=== PATIENT | male | born 1960 | race Caucasian/White ===

== ENCOUNTER 2019-05-20 12:23 | Emergency (ER) | payer BC, SELFPAY ==
[2019-05-20 12:42] VITALS: BP 128/74; PULSE 62; RESP 16; TEMP 36.3; O2SAT 97
--- NOTE | 2019-05-20 12:52 | ED.GENADULT ---
HPI - General Adult General Chief complaint: Upper Respiratory Infection Stated complaint: cough chest ras head clogged up Time Seen by Provider: 05/20/19 12:52 Source: patient and RN notes reviewed Mode of arrival: ambulatory Limitations: no limitations History of Present Illness HPI narrative: 58-year-old male presents with spouse (talk freely)Tito complains of upper respiratory infection symptoms, intermittent chills, facial congestion and pressure, dry cough, body aches, intermittent headache (not the worst of his life) for 3 days. Ibuprofen (last this a.m.), NyQuil, and DayQuil without relief. Constant dry cough and productive cough (yellow-green phlegm). Rhinorrhea (yellow drainage) and nasal congestion. Denies sore throat. No high fevers, drooling, neck or throat swelling. No chest pain, wheezing, or shortness of breath. No exacerbation factors. Denies nausea, vomiting, and abdominal pain. Tolerating liquids well. Remains active. Some parts of this dictation were generated by voice recognition software and may contain typographical and/or grammatical inaccuracies. Related Data Allergies Allergy/AdvReac Type Severity Reaction Status Date / Time morphine Allergy Unknown HIVES/RASH Verified 05/20/19 12:46 Review of Systems Review of Systems: Narrative: CONSTITUTIONAL: Complains of intermittent chills, sweats. Denies fever. EYES: Denies visual changes, redness, discharge. ENT: Complains rhinorrhea, congestion, facial congestion and pressure. Denies sore throat, otalgia. CARDIOVASCULAR: Denies chest pain, palpitations, edema. RESPIRATORY: Denies dyspnea, wheezing. Complains of dry cough, productive cough. GASTROINTESTINAL: Denies abdominal pain, nausea, vomiting, diarrhea. GENITOURINARY: Denies dysuria, hematuria, abnormal discharge. SKIN: Denies rash or itching. MUSCULOSKELETAL: Denies acute back pain, joint pain. complains of myalgia. NEUROLOGIC: Denies numbness or focal weakness. Complains intermittent headache. PSYCHIATRIC: Denies anxiety or depression. All systems reviewed & are unremarkable except as noted in HPI and below PMFSH Past Medical History Medical History (Updated 05/21/19 @ 00:01 by Rhonda Mathews) Lymphadenopathy, axillary Removed Prostate cancer Surgical History Surgical History (Updated 05/20/19 @ 13:18 by MATTHEW Thurman) No significant past surgical history Social History Social History Smoking status: Never smoker Alcohol intake: current Gender identity (if verbalized by the patient): Male Comments At time of signature, agree with nurse past medical, surgical, social, and family history. There is no relevant family history pertinent to the presenting complaint. Exam Narrative: Exam Narrative: GENERAL: This is a well-nourished, well-developed patient, in no apparent distress. Talks in full sentences and ambulates with steady gait without dyspnea. HEAD: normocephalic, atraumatic. EYES: PERRL. Sclera clear/white. Vision is grossly intact. EARS: Pinna is normal shape and contour. Clear external auditory canals. LT TM with mild fluid and pearly aguirre with good cone of light, no erythema or suppuration. RT TM mild erythema and bulging, moderate fluid noted, no drainage or suppuration. No tenderness with manipulation. No gross hearing deficit. NOSE: External nose normal with no obvious nasal discharge, nares with moderate redness and enlarged turbinates, clear rhinorrhea. SINUSES: Mild tenderness upon palpation to maxillary sinus. THROAT: Mucous membranes moist, posterior pharynx clear. PND, mild erythema, no exudate, and tonsils normal. NECK: Neck supple, non-tender without lymphadenopathy, masses or thyromegaly. CARDIOVASCULAR: Regular rate and rhythm without murmurs, gallops, or rubs. RESPIRATORY: Clear to auscultation. Breath sounds equal bilaterally. No wheezes, rales, or rhonchi. Dry cough. GASTROI
== END 2019-05-20 13:10 | disposition home or self-care (01) ==
PROVIDERS: Emergency Provider Nurse Practitioner Family
DX: J40 Bronchitis, not specified as acute or chronic (principal); H65.01 Acute serous otitis media, right ear
CPT/HCPCS: 99213; G0463

== ENCOUNTER 2020-01-16 16:19 | Emergency (ER) | payer BC, SELFPAY ==
[2020-01-16 16:28] VITALS: BP 154/76; PULSE 63; RESP 18; TEMP 36.4; O2SAT 97
--- NOTE | 2020-01-16 16:30 | ED.URI ---
HPI - URI/Sore Throat General Chief Complaint: Upper Respiratory Infection Stated Complaint: Ear Pain,sore throat Time Seen by Provider: 01/16/20 16:30 Source: patient Mode of arrival: ambulatory Limitations: no limitations History of Present Illness HPI Narrative: Tito Salazar is 59 yo male with a PMH of HTN who comes to express care with complaints of sinus pain, congestion, action of green mucus, cough, that started yesterday. He has a history of having sinus infections every fall and/or spring. He has seasonal allergies which she does not take any antihistamine on a regular basis. He also has hypertension that he also does not take regular medication for. He is here for treatment of his sinus issues because he wants to return to work in the morning Related Data Allergies Allergy/AdvReac Type Severity Reaction Status Date / Time morphine Allergy Unknown HIVES/RASH Verified 01/16/20 16:22 Review of Systems Review of Systems: Narrative: CONSTITUTIONAL: Denies fever, chills, sweats. EYES: Denies visual changes, redness, discharge. ENT: Has rhinorrhea, has congestion, sore throat, otalgia. He has maxillary and ethmoid sinus pain CARDIOVASCULAR: Denies chest pain, palpitations, edema. RESPIRATORY: Denies dyspnea, wheezing, cough GASTROINTESTINAL: Denies abdominal pain, nausea, vomiting, diarrhea. GENITOURINARY: Denies dysuria, hematuria, abnormal discharge SKIN: Denies rash or itching. NEUROLOGIC: Denies numbness, or focal weakness. PSYCHIATRIC: Denies anxiety or depression. [facility] Past Medical History Medical History HTN (hypertension) Lymphadenopathy, axillary Removed Prostate cancer Surgical History Surgical History No significant past surgical history Family History Family History Mother Hypertension Father Hypertension Social History Social History Smoking status: Never smoker Alcohol intake: current Gender identity (if verbalized by the patient): Female Comments At time of signature, I agree with nursing past medical, surgical, social and family history. There is no relevant family history pertinent to the presenting complaint. Exam Narrative: Exam Narrative: GENERAL: This is a well-nourished, well-developed patient, in mild distress. HEAD: normocephalic, atraumatic.Tender frontal ethmoid sinuses EYES: Sclera clear/white. Vision is grossly intact. EARS: External ears normal, auditory canals clear, some erythema, and without drainage, TMs normal without perforation. Hearing grossly intact. Complains of muffling NOSE: External nose normal ,has nasal discharge, nares with redness, has rhinorrhea. THROAT: Mucous membranes moist, posterior pharynx erythema no exudate NECK: Neck supple, non-tender CARDIOVASCULAR: Regular rate and rhythm without murmurs, gallops, or rubs. RESPIRATORY: Clear to auscultation. Breath sounds equal bilaterally. No wheezes, rales, or rhonchi. GASTROINTESTINAL: Abdomen soft, non-tender, SKIN: warm, intact with no suspicious lesions or rash, good texture and turgor. NEURO: awake, alert, and oriented to person, place and time. There were no obvious focal neurologic abnormalities. Steady gait EXTREMITIES: Normal range of motion. BACK: Nontender without deformity Course Course Emergency Course: Patient comes here for symptoms of sinus infection that is recurrent and well-documented. He does not take Zyrtec or Claritin in the a.m. although has seasonal allergies. Symptoms are consistent with his prior experiences with recurrent sinusitis Patient started on Zithromax and prednisone (he is allergic to penicillin so Augmentin is not an option), recommended to start taking Zyrtec or Claritin in the morning during the fall and spring at least when his allergies seem
== END 2020-01-16 16:57 | disposition home or self-care (01) ==
PROVIDERS: Emergency Provider Nurse Practitioner
DX: J01.21 Acute recurrent ethmoidal sinusitis (principal); I10 Essential (primary) hypertension; Z85.46 Personal history of malignant neoplasm of prostate
CPT/HCPCS: 99213; G0463

== ENCOUNTER 2020-03-25 14:49 | Emergency (ER) | payer BC, SELFPAY ==
--- NOTE | ~2020-03-25 | XR_ITS ---
EXAMINATION: XR chest 2V DATE: 03/25/2020 15:28 INDICATION: Cough and shortness of breath TECHNIQUE: PA and lateral views of the chest are obtained. COMPARISON: 03/11/2017 FINDINGS: The lungs are free of acute opacities. There is no pleural effusion or pneumothorax. The ca rdiomediastinal silhouette is normal. There is mild thoracic spondylosis. IMPRESSION: 1. No acute cardiopulmonary abnormality. Reviewed, dictated and finalized at location A. FARMER
[2020-03-25 14:58] VITALS: BP 134/80; PULSE 70; RESP 18; TEMP 36.2; O2SAT 97
[2020-03-25 15:03] VITALS: BP 134/80; PULSE 70; RESP 18; TEMP 36.2; O2SAT 97
--- NOTE | 2020-03-25 15:21 | ED.URI ---
HPI - URI/Sore Throat General Chief Complaint: Upper Respiratory Infection Stated Complaint: Cough Time Seen by Provider: 03/25/20 15:07 Source: patient and RN notes reviewed Mode of arrival: ambulatory Limitations: no limitations History of Present Illness HPI Narrative: Patient presents today complaining of a 3-day history of nasal congestion, body aches, chills and sweats, ear clogging, frontal headache, productive cough, mild shortness of breath, fatigue, and chest tightness. Denies nausea, vomiting, sore throat. Patient was diagnosed with COVID-19 around [facility]. States his symptoms are rather mild and those symptoms completely resolved prior to getting sick again. He has been taking Zyrtec-D without relief. He is a non-smoker. MD elicited complaint: cough and nasal congestion Related Data Allergies Allergy/AdvReac Type Severity Reaction Status Date / Time morphine Allergy Unknown HIVES/RASH Verified 03/25/20 14:54 Review of Systems Review of Systems: Narrative: CONSTITUTIONAL: + Body aches, sweats, chills, fatigue EYES: Denies visual changes, redness, or discharge. ENT: Denies rhinorrhea, sore throat, or otalgia. + Nasal congestion, clogged ears CARDIOVASCULAR: Denies chest pain, palpitations, or edema. RESPIRATORY: + Productive cough, mild shortness of breath, chest tightness GASTROINTESTINAL: Denies abdominal pain, nausea, vomiting, or diarrhea. GENITOURINARY: Denies dysuria or hematuria. SKIN: Denies rash, itching, or wounds. MUSCULOSKELETAL: Denies back pain, joint pain, or myalgia. NEUROLOGIC: Denies numbness, tingling, or weakness.+ Headache PSYCH: Denies depression or anxiety. [facility] Past Medical History Medical History (Updated 03/25/20 @ 15:47 by Joyce Andrade, [facility], ) HTN (hypertension) Lymphadenopathy, axillary Removed Prostate cancer Surgical History Surgical History No significant past surgical history Family History Family History Mother Hypertension Father Hypertension Social History Social History Smoking status: Never smoker Alcohol intake: current Gender identity (if verbalized by the patient): Female Comments At time of signature, I have reviewed and agree with nursing past medical, surgical, social and family history unless otherwise noted. Please see nursing chart for further information. There is no relevant family history pertinent to the presenting complaint Exam Narrative: Exam Narrative: GENERAL: Mildly ill-appearing, well-nourished, and in no acute distress. HEAD: Normocephalic, atraumatic. EYES: EOMI. No redness or drainage. Conjunctivae normal. ENT: Mucous membranes pink and moist. Nares clear. No rhinorrhea. TMs normal bilaterally. Throat normal with copious green purulent postnasal drainage. Uvula midline. NECK: Normal AROM. Supple. Right posterior cervical chain lymphadenopathy. CHEST: No respiratory distress. Clear to auscultation except crackles in the left lower lobe. HEART: Regular rate and rhythm. No murmur appreciated. Normal peripheral pulses. MUSCULOSKELETAL: No bony tenderness. EXTREMITIES: Normal range of motion. No edema. SKIN: Warm, dry, no rash. Capillary refill normal. Normal skin turgor. NEURO: No focal deficits. Alert and oriented x3. Gait steady. PSYCH: Normal affect. No signs of depression or anxiety. Course Course Emergency Course: Due to patient's history of likely fever, recent COVID infection, purulent post nasal drainage, I feel it indicated to prescribe him antibiotics for presumed bacterial sinusitis at this time. Vital Signs Vital signs: Vital Signs Temperature 97.1 F L 03/25/20 14:58 Pulse Rate 70 03/25/20 14:58 Respiratory Rate 18 03/25/20 14:58 Blood Pressure 134/80 03/25/20 14:58 Pulse Oximetry 97 03/25/20 14:58 Temperatur
== END 2020-03-25 15:54 | disposition home or self-care (01) ==
PROVIDERS: Emergency Provider Nurse Practitioner
DX: J40 Bronchitis, not specified as acute or chronic (principal); J01.10 Acute frontal sinusitis, unspecified; I10 Essential (primary) hypertension; Z85.46 Personal history of malignant neoplasm of prostate
CPT/HCPCS: 71046; 99213; G0463

== ENCOUNTER 2020-06-27 15:39 | Outpatient (CLI) | payer BC, SELFPAY ==
--- NOTE | ~2020-06-27 | XR_ITS ---
XR shoulder RT min 2V DATE: 06/27/2020 16:01 INDICATION: Right shoulder pain following lifting injury one week ago. Unable to lift. TECHNIQUE: 4 views COMPARISON: None FINDINGS: No fracture or dislocation, periosteal reaction or bone destruction or abnormal soft tissue calcification is evident. There is narrowing of the right acromioclavicular joint. IMPRESSION: Mild degenerative change Reviewed, dictated and finalized at location A. IMPRESSION: Mild degenerative change
== END 2020-06-27 15:40 | disposition home or self-care (01) ==
LOC: ANHIMG 15:44
PROVIDERS: PCP Family Medicine; Visit Provider Family Medicine
DX: M19.011 Primary osteoarthritis, right shoulder (principal)
CPT/HCPCS: 73030

== ENCOUNTER 2020-07-13 19:47 | Emergency (ER) | payer BC, SELFPAY ==
--- NOTE | 2020-07-13 20:00 | ED.URI ---
HPI - URI/Sore Throat General Chief Complaint: Upper Respiratory Infection Stated Complaint: chills/fever/cough Time Seen by Provider: 07/13/20 20:05 Source: patient and RN notes reviewed Mode of arrival: ambulatory Limitations: no limitations History of Present Illness HPI Narrative: 59-year-old male presents with concern for sore throat, nasal drainage, body aches, chills, occasional cough, nasal congestion. He denies fever, ear pain, loss of sense of taste or smell. Reports he had Covid in February. Reports he has been taking several [id number] medications that provide no relief. He denies any known sick contacts. He denies nausea, vomiting, diarrhea. MD elicited complaint: sore throat Related Data Allergies Allergy/AdvReac Type Severity Reaction Status Date / Time morphine Allergy Unknown HIVES/RASH Verified 03/25/20 14:54 Review of Systems Review of Systems: Narrative: CONSTITUTIONAL: Reports malaise, chills. Denies sweats, or fever. EYES: Denies visual changes, redness, or discharge. ENT: Reports rhinorrhea, congestion, sore throat. Denies sinus pain, otalgia CARDIOVASCULAR: Denies chest pain, palpitations, or edema. RESPIRATORY: Reports cough. Denies dyspnea. GASTROINTESTINAL: Denies abdominal pain, nausea, vomiting, diarrhea SKIN: Denies rash or itching. MUSCULOSKELETAL: Reports myalgia. NEUROLOGIC: Reports headache. All systems reviewed & are unremarkable except as noted in HPI and below PMFSH Past Medical History Medical History (Updated 07/13/20 @ 20:14 by Cynthia Sommers NP) HTN (hypertension) Lymphadenopathy, axillary Removed Prostate cancer Surgical History Surgical History No significant past surgical history Family History Family History Mother Hypertension Father Hypertension Social History Social History Smoking status: Never smoker Alcohol intake: current Gender identity (if verbalized by the patient): Female Comments At time of signature, agree with nursing past medical, surgical, social and family history. There is no relevant family history pertinent to the presenting complaint Exam Narrative: Exam Narrative: GENERAL: Well-appearing, well-nourished, and in no acute distress. HEAD: Normocephalic EYES: PERRLA, conjunctivae clear ENT: Nares clear, turbinates erythematous, clear discharge. Mucous membranes moist. TM pearly barron with dull light reflex bilaterally; no tragal tenderness. Oropharynx erythematous without lesions. Tonsils not enlarged and without exudate, no drooling, no hoarseness, no trismus, uvula midline. NECK: Supple. No lymphadenopathy CHEST: Clear to auscultation, breath sounds equal. No wheezing, rhonchi, rales, or stridor. No respiratory distress, speaks in full sentences. HEART: Regular rate and rhythm. No murmur heard. SKIN: Warm, dry, no rash. NEURO: Alert and oriented x3. PSYCH: Normal mood and affect Course Course Emergency Course: Patient is aware of diagnosis, understands and agrees to treatment plan. Anticipatory guidance given. Patient agrees to follow-up as directed and is aware of reasons to seek care at the emergency department. Portions of this record may have been created with voice recognition software Vital Signs Vital signs: Vital Signs Temperature 97.6 F 07/13/20 20:06 Pulse Rate 57 L 07/13/20 20:06 Respiratory Rate 16 07/13/20 20:06 Blood Pressure 160/86 H 07/13/20 20:06 Pulse Oximetry 97 07/13/20 20:06 Temperature 97.6 F 07/13/20 20:06 Pulse Rate 57 L 07/13/20 20:06 Respiratory Rate 16 07/13/20 20:06 Blood Pressure 160/86 H 07/13/20 20:06 Pulse Oximetry 97 07/13/20 20:06 Reviewed. MDM - URI/Sore Throat MDM Narrative Medical decision making narrative: Differential diagnosis considered: Allen virus, strep pharyngitis, allergic
[2020-07-13 20:06] VITALS: BP 160/86; PULSE 57; RESP 16; TEMP 36.4; O2SAT 97
--- NOTE | 2020-07-13 20:10 | PC.NURSE ---
Andry glasgow [facility] called for Vast PCR pickup tomorrow.
[2020-07-15 02:54] LABS: SARS-CoV-2 RNA PCR Negative
== END 2020-07-13 20:19 | disposition home or self-care (01) ==
PROVIDERS: Emergency Provider Nurse Practitioner
DX: J06.9 Acute upper respiratory infection, unspecified (principal); Z20.822 Contact with and (suspected) exposure to COVID-19; I10 Essential (primary) hypertension; Z85.46 Personal history of malignant neoplasm of prostate
CPT/HCPCS: 87081; 87880; 99213; C9803; G0463; U0003; U0005

== ENCOUNTER 2021-06-14 08:26 | Outpatient (CLI) | payer BC, SELFPAY ==
--- NOTE | 2021-06-14 11:00 | NEURO_ITS ---
Impression: # Complains of numbness of hands and neck pain. # Bilateral Carpal Tunnel Syndrome. # Bilateral ulnar neuropathy across the elbows. # Normal needle/EMG exam. # Clinical correlation recommended. Nerve Conduction Studies Anti Sensory Summary Table Stim Site NR Peak (ms) P-T Amp (?V) Site1 Site2 Delta-P (ms) Dist (cm) Harmeet (m/s) Left Median Anti Sensory (2-3nd Digit) Wrist 3.8 16.4 Wrist 2-3nd Digit 3.8 14.0 37 Wrist 3.6 5.8 Wrist 2-3nd Digit 3.8 14.0 37 Right Median Anti Sensory (2-3nd Digit) Wrist 4.0 8.4 Wrist 2-3nd Digit 4.0 14.0 35 Wrist 4.2 4.1 Wrist 2-3nd Digit 4.0 14.0 35 Left Radial Anti Sensory (Base 1st Digit) Wrist 2.2 26.0 Wrist Base 1st Digit 2.2 0.0 Right Radial Anti Sensory (Base 1st Digit) Wrist 2.4 15.4 Wrist Base 1st Digit 2.4 0.0 Left Ulnar Anti Sensory (5th Digit) Wrist 2.9 45.9 Wrist 5th Digit 2.9 14.0 48 Right Ulnar Anti Sensory (5th Digit) Wrist 3.1 24.9 Wrist 5th Digit 3.1 14.0 45 Motor Summary Table Stim Site NR Onset (ms) O-P Amp (mV) Site1 Site2 Delta-0 (ms) Dist (cm) Harmeet (m/s) Left Median Motor (Abd Poll Brev) Wrist 4.5 4.1 Elbow Wrist 6.5 30.0 46 Elbow 11.0 3.3 Right Median Motor (Abd Poll Brev) Wrist 3.5 5.9 Elbow Wrist 5.8 30.0 52 Elbow 9.3 5.5 Left Ulnar Motor (Abd Dig Minimi) Wrist 3.0 5.3 A Elbow Wrist 7.8 31.0 40 A Elbow 10.8 4.7 B Elbow Wrist 5.4 24.0 44 B Elbow 8.4 3.8 Right Ulnar Motor (Abd Dig Minimi) Wrist 2.6 5.7 A Elbow Wrist 7.1 31.0 44 A Elbow 9.7 6.4 B Elbow Wrist 4.8 22.0 46 B Elbow 7.4 3.5 F Wave Studies NR F-Lat (ms) L-R F-Lat (ms) Left Median (Mrkrs) (Abd Poll Brev) 26.99 0.51 Right Median (Mrkrs) (Abd Poll Brev) 26.49 0.51 Left Ulnar (Mrkrs) (Abd Dig Min) 26.55 0.47 Right Ulnar (Mrkrs) (Abd Dig Min) 26.08 0.47 EMG Side Muscle Nerve Root Ins Act Fibs Amp Dur Recrt Comment Right 1stDorInt Ulnar C8-T1 Nml Nml Nml Nml Nml Right Ext Indicis Radial (Post Int) C7-8 Nml Nml Nml Nml Nml Right Ext Digitorum Radial (Post Int) C7-8 Nml Nml Nml Nml Nml Right BrachioRad Radial C5-6 Nml Nml Nml Nml Nml Right PronatorTeres Median C6-7 Nml Nml Nml Nml Nml Right Abd Poll Brev Median C8-T1 Nml Nml Nml Nml Nml Left 1stDorInt Ulnar C8-T1 Nml Nml Nml Nml Nml Left Ext Indicis Radial (Post Int) C7-8 Nml Nml Nml Nml Nml Left Ext Digitorum Radial (Post Int) C7-8 Nml Nml Nml Nml Nml Left BrachioRad Radial C5-6 Nml Nml Nml Nml Nml Left PronatorTeres Median C6-7 Nml Nml Nml Nml Nml Left Abd Poll Brev Median C8-T1 Nml Nml Nml Nml Nml Right ABD Dig Min Ulnar C8-T1 Nml Nml Nml Nml Nml Right Abd Poll Long Radial (Post Int) C7-8 Nml Nml Nml Nml Nml Left ABD Dig Min Ulnar C8-T1 Nml Nml Nml Nml Nml Left Abd Poll Long Radial (Post Int) C7-8 Nml Nml Nml Nml Nml MTDD
== END 2021-06-14 08:27 | disposition home or self-care (01) ==
LOC: ANHNEURO 08:27
PROVIDERS: PCP Physician Assistant; Visit Provider Physician Assistant
DX: G56.03 Carpal tunnel syndrome, bilateral upper limbs (principal); G56.23 Lesion of ulnar nerve, bilateral upper limbs
CPT/HCPCS: 95886; 95911

== ENCOUNTER 2021-08-07 10:53 | Outpatient (CLI) | payer BC, SELFPAY ==
--- NOTE | ~2021-08-07 | XR_ITS ---
XR lumbar spine 2-3V DATE: 08/07/2021 11:19 INDICATION: Chronic low back pain TECHNIQUE: AP, lateral views COMPARISON: None FINDINGS: There is mild dextroscoliosis of the lower thoracic and lumbar spine. Normal alignment of the lumbar vertebrae. No fracture or bone destruction. The lumbar pedicles are in tact. There is mild degenerative disc disease at L3-4. The remaining lumbar and lumbosacral interspaces trevor ear well preserved. The sacroiliac joints are intact. IMPRESSION: Mild dextro scoliosis Mild degenerative disc disease Reviewed, dictated and finalized at location A.
--- NOTE | ~2021-08-07 | XR_ITS ---
XR chest 2V DATE: 08/07/2021 11:19 INDICATION: Decreased breath sounds TECHNIQUE: PA and lateral views COMPARISON: 03/25/2020 2 view chest FINDINGS: Normal heart size. Mild aortic unfolding. No hilar or mediastinal enlargement. No pulmonary infiltrate or consolidation, pleural effusion or pulmonary vascular congestion or pneumo thorax. Included skeletal structures are unremarkable. IMPRESSION: No active cardiopulmonary disease Reviewed, dictated and finalized at location A.
--- NOTE | ~2021-08-07 | XR_ITS ---
XR knee RT 3V DATE: 08/07/2021 11:19 INDICATION: Right knee pain TECHNIQUE: AP, lateral and sunrise views COMPARISON: None FINDINGS: There is mild periarticular spurring at the patellofemoral joint consistent with osteoarthr itis. Medial and lateral as well as patellofemoral joint spaces are well preserved. No radiopaque int ra-articular loose body or chondrocalcinosis. No fracture, dislocation, periosteal reaction or bone destruction or joint effusion. IMPRESSION: Mild patellofemoral osteoarthritis Reviewed, dictated and finalized at location A.
--- NOTE | ~2021-08-07 | XR_ITS ---
XR_CERV2-3V_CR DATE: 08/07/2021 11:19 INDICATION: Chronic neck pain TECHNIQUE: AP, lateral, open mouth views COMPARISON: None FINDINGS: Diffuse osteopenia. There is straightening of the cervical spine. Levoscoliosis of cervical and upper thoracic spine. C1 and C2 are normally aligned and the odontoid process is intact. There is approximately 3.5 mm anterolisthesis at C2-3 and C3-4. Mild degenerative disc disease at C2-3 and C3-4. Moderately severe degenerative disc disease at C4-5, C5-6, C6-7, C7-T1. There is uncovertebral joint spurring in the mid and lower cervical spine. There is degenerative aragon ge at the apophyseal joints throughout the cervical spine. IMPRESSION: Straightening and levoscoliosis 3.5 mm anterolisthesis at C2-3 and C3-4 Mild degenerative disc disease at C2-3 and C3-4 Moderately severe degenerative disc disease at the remainder of the cervical spine Apophyseal and uncovertebral joint spurring Reviewed, dictated and finalized at Location A. Reviewed, dictated and finalized at location A. IMPRESSION: Straightening and levoscoliosis 3.5 mm anterolisthesis at C2-3 and C3-4 Mild degenerative disc disease at C2-3 and C3-4 Moderately severe degenerative disc disease at the remainder of the cervical sp ine Apophyseal and uncovertebral joint spurring
--- NOTE | ~2021-08-07 | XR_ITS ---
XR thoracic spine 3V DATE: 08/07/2021 11:19 INDICATION: Thoracic chronic back pain TECHNIQUE: AP, lateral and swimmer views COMPARISON: 08/07/2021 lumbar spine FINDINGS: There is mild levoscoliosis. Osteopenia. No fracture or bone destruction. The thoracic pedicles are intact. No paraspinal soft tissue thickeni ng. IMPRESSION: Mild levoscoliosis Reviewed, dictated and finalized at location A. IMPRESSION: Mild levoscoliosis
== END 2021-08-07 10:54 | disposition home or self-care (01) ==
PROVIDERS: PCP Physician Assistant; Visit Provider Physician Assistant
DX: M41.9 Scoliosis, unspecified (principal); M47.816 Spondylosis without myelopathy or radiculopathy, lumbar region; M47.813 Spondylosis without myelopathy or radiculopathy, cervicothoracic region; R09.89 Other specified symptoms and signs involving the circulatory and respiratory systems; M54.6 Pain in thoracic spine
CPT/HCPCS: 71046; 72040; 72072; 72100; 73562

== ENCOUNTER 2021-10-01 14:55 | Outpatient (CLI) | payer BC, SELFPAY ==
--- NOTE | ~2021-10-01 | MR_ITS ---
EXAMINATION: MR lumbar spine wo con DATE: 10/01/2021 15:38 INDICATION: DEGENERATION OF LUMBAR INTERVERTEBRAL DISC . TECHNIQUE: Magnetic resonance imaging (MRI) of the lumbar spine was performed without intravenous con trast. Sequences included sagittal T2-weighted FSE, sagittal T2-weighted FS FSE, sagittal T1-weighted FSE, and axial T2-weighted FSE. COMPARISON: X-ray 08/07/2021. FINDINGS: Simple right renal cyst. The last fully formed and hydrated disc is designated L5-S1. The m arrow signal is benign and homogenous. Conus terminates at L2. Mild traction and clumping of nerve ro ots. Multilevel disc dehydration. The following disc levels are specifically discussed: T11-T12: The disc does not extend beyond the endplate margin. There is no facet joint osteoarthritis. There is no neural foraminal stenosis. There is no central canal stenosis. T12-L1: The disc does not extend beyond the endplate margin. There is mild facet joint osteoarthritis . There is no neural foraminal stenosis. There is no central canal stenosis. L1-L2: Mild diffuse bulge with a tiny, incomplete focal rent in the posterior annulus. There is moder ate facet joint osteoarthritis. There is no neural foraminal stenosis. There is no central canal sten osis. L2-L3: Mild diffuse bulge. There is moderate facet joint osteoarthritis. There is no neural foraminal stenosis. There is no central canal stenosis. L3-L4: Moderate diffuse bulge, with transversely oriented and circumferentially oriented rents in the left and right paracentral portions of the disc, respectively. 6 mm right paracentral sequestered di sc fragment. There is moderate facet joint osteoarthritis. There is mild bilateral neural foraminal s tenosis. There is no central canal stenosis. L4-L5: Moderate diffuse bulge. There is severe right and moderate left facet joint osteoarthritis. Th ere is moderate right and mild left neural foraminal stenosis. There is mild central canal stenosis. L5-S1: Mild diffuse bulge with a transversely oriented posterior rent in the disc. There is moderate bilateral facet joint osteoarthritis. There is no neural foraminal stenosis. There is no central emir l stenosis. IMPRESSION: 1. 6 mm right L3-4 paracentral disc sequestration that narrows the right lateral recess at this level . 2. Moderate right L4-5 neural foraminal narrowing and mild central canal narrowing secondary to a com bination of degenerative disc and facet change. 3. Tears in the annulus fibrosis at L1-2, L3-4, and L5-S1, as described above. 4. Multilevel degenerative disc disease and facet arthropathy. 5. Mild lumbar adhesive arachnoiditis. Reviewed, dictated and finalized at location K. IMPRESSION: 1. 6 mm right L3-4 paracentral disc sequestration that narrows the right latera l recess at this level. 2. Moderate right L4-5 neural foraminal narrowing and mild central canal narrow ing secondary to a combination of degenerative disc and facet change. 3. Tears in the annulus fibrosis at L1-2, L3-4, and L5-S1, as described above. 4. Multilevel degenerative disc disease and facet arthropathy. 5. Mild lumbar adhesive arachnoiditis.
== END 2021-10-01 14:56 | disposition home or self-care (01) ==
PROVIDERS: PCP Physician Assistant; Visit Provider Physician Assistant
DX: M51.36 Other intervertebral disc degeneration, lumbar region (principal)
CPT/HCPCS: 72148

== ENCOUNTER 2021-12-06 14:52 | Emergency (ER) | payer BC, SELFPAY ==
[2021-12-06 14:56] VITALS: BP 111/69; PULSE 110; RESP 16; TEMP 36.3; O2SAT 100
--- NOTE | 2021-12-06 15:06 | ED.GENADULT ---
HPI - General Adult General Chief complaint: Wound/Laceration Stated complaint: wound on right knee Time Seen by Provider: 12/06/21 14:59 History of Present Illness HPI narrative: 61-year-old male presented to the emergency department for evaluation of erythema to the dorsal aspect of his right knee and some right-sided groin pain. Patient states that the redness started approximately 1 week ago. Patient states he has been applying baking soda to the area and states that the rash has since improved. Patient states that he was having increased pain of the right groin so he presented to the emergency department for evaluation. Patient denies any testicular pain. Patient does have reproducible right groin pain and enlarged lymph nodes. Related Data Allergies Allergy/AdvReac Type Severity Reaction Status Date / Time morphine Allergy Unknown HIVES/RASH Verified 12/06/21 15:02 Review of Systems Review of Systems: CONSTITUTIONAL: Denies fever, chills, or sweats. EYES: Denies visual changes, redness, or discharge. ENT: Denies rhinorrhea, congestion, sore throat, or otalgia. CARDIOVASCULAR: Denies chest pain, palpitations, or edema. RESPIRATORY: Denies cough or dyspnea. GASTROINTESTINAL: Denies abdominal pain, nausea, vomiting, or diarrhea. GENITOURINARY: Denies dysuria or hematuria. SKIN: See HPI MUSCULOSKELETAL: See HPI NEUROLOGIC: Denies headache, numbness, or weakness. PMFSH Past Medical History Medical History (Updated 12/06/21 @ 15:12 by Rasheed Villalba MD) HTN (hypertension) Lymphadenopathy, axillary Removed Prostate cancer Surgical History Surgical History No significant past surgical history Family History Family History Mother Hypertension Father Hypertension Social History Social History Smoking status: Never smoker Alcohol intake: current Gender identity (if verbalized by the patient): Female Exam Narrative: APPEARANCE: Well appearing, no pain, no distress, well-nourished. HEAD: normocephalic, atraumatic. EYES: PERRLA/EOMI, conjunctivae clear. NOSE: Normal no drainage NECK: Supple. No adenopathy, no masses. RESPIRATORY: Airway patent, respirations nonlabored. Clear to auscultation bilaterally, no rales, rhonchi, wheezing. CARDIOVASCULAR: Regular rate and rhythm without murmurs rubs or gallops. ABDOMINAL: Soft, nontender, nondistended, normal bowel sounds MUSCULOSKELETAL: Moves all extremities. Strength/ROM intact, No edema, No calf tenderness. Some palpable lymph nodes at the right groin. NEURO: Alert. Cranial nerves II through XII intact. Grossly intact SKIN: Mild erythema to the dorsal aspect of the right knee Course Course Emergency Course: Suspect cellulitis with reactive lymph nodes of the right groin. Patient will be started on Keflex in the emergency department. Patient was updated on the treatment plan and plan for follow-up with his primary care physician. All question concerns were addressed. Vital Signs Vital signs: Vital Signs Temperature 97.3 F L 12/06/21 14:56 Pulse Rate 110 H 12/06/21 14:56 Respiratory Rate 16 12/06/21 14:56 Blood Pressure 111/69 12/06/21 14:56 Pulse Oximetry 100 12/06/21 14:56 Oxygen Delivery Room Air 12/06/21 14:56 Temperature 97.3 F L 12/06/21 14:56 Pulse Rate 110 H 12/06/21 14:56 Respiratory Rate 16 12/06/21 14:56 Blood Pressure 111/69 12/06/21 14:56 Pulse Oximetry 100 12/06/21 14:56 Oxygen Delivery Room Air 12/06/21 14:56 Medical Decision Making Vital Signs Vital Signs: Vital Signs Temperature 97.3 F L 12/06/21 14:56 Pulse Rate 110 H 12/06/21 14:56 Respiratory Rate 16 12/06/21 14:56 Blood Pressure 111/69 12/06/21 14:56 Pulse Oximetry 100 12/06/21 14:56 Oxygen Delivery Room Air 12/06/21 14:56 Temperature 97.
[2021-12-06] MEDS: CEPHALEXIN 500 MG CAPSULE PO (15:17)
== END 2021-12-06 15:32 | disposition home or self-care (01) ==
LOC: ANHED 15:21
PROVIDERS: Emergency Provider Emergency Medicine; PCP Physician Assistant
DX: L03.115 Cellulitis of right lower limb (principal); I10 Essential (primary) hypertension; Z85.46 Personal history of malignant neoplasm of prostate
CPT/HCPCS: 99283; A9270

== ENCOUNTER 2021-12-12 13:32 | Inpatient (IN) | payer BC, SELFPAY ==
--- NOTE | ~2021-12-12 | XR_ITS ---
EXAM: XR hip RT min 2V DATE: 12/12/2021 16:00 HISTORY: fall, groin pain . COMPARISON: None available. FINDINGS: Surgical clips over the left hip. Normal mineralization. No fracture or dislocation. No ly tic or blastic lesion. Mild bilateral hip osteoarthritis. Mild degenerative lumbar change. No erosion or periosteal change. Soft tissues within normal limits. IMPRESSION: No acute osseous finding in the right hip. Reviewed, dictated and finalized at location K.
--- NOTE | ~2021-12-12 | US_ITS ---
EXAMINATION: US venous doppler [facility] DATE: 12/13/2021 13:02 INDICATION: Right lower limb swelling. TECHNIQUE: Grayscale ultrasound images without and with compression and Doppler ultrasound images of the bilateral lower extremity veins were obtained. COMPARISON: None. FINDINGS: The visualized portions of right common femoral vein, profunda (deep) femoral vein, femoral vein, pop liteal vein, peroneal veins, posterior tibial veins, and greater saphenous vein outflow are patent. The visualized portions of left common femoral vein, profunda femoral vein, femoral vein, popliteal v ein, peroneal veins, posterior tibial veins, and greater saphenous vein outflow are patent. IMPRESSION: 1. No deep venous thrombosis. Reviewed, dictated and finalized at location A.
--- NOTE | ~2021-12-12 | CT_ITS ---
EXAMINATION: 1. CT drain retroperitoneal 2. CT drain retroperitoneal DATE: 12/13/2021 12:35 INDICATION: Right iliopsoas and right retroperitoneal abscesses. TECHNIQUE: The procedure including the risks, benefits, and alternatives was discussed with the patie nt. Risks discussed included bleeding and infection. The patient understood the risks and benefits an d agreed to proceed. The skin overlying the right lower quadrant of the abdomen was prepped and drap ed in usual sterile fashion. Anesthetic was administered with 1% lidocaine subcutaneously. An 18 gau ge trochar needle was inserted into the right iliopsoas abscess with CT guidance. The needle was exch anged over a wire for 6 German, 8 German, and 9 German dilators and then for an 8.5 German pigtail ca theter. An 18 gauge trochar needle was inserted into the right retroperitoneal abscess with CT guidance. The needle was exchanged over a wire for 6 German, 8 German, and 9 German dilators and then for an 8.5 Fr ench pigtail catheter. The catheters were stitched to the skin, and a sterile dressing was applied. T he mA was adjusted according to patient size. Iterative reconstruction technique was employed. The do se-length product was 392.96 mGy-cm. There were no immediate complications. FINDINGS: CT images demonstrate the catheter within the right iliopsoas abscess. 2 mL fluid was aspir ated for testing. CT images demonstrate the catheter within the right retroperitoneal abscess. IMPRESSION: 1. Successful CT-guided right iliopsoas abscess drainage. 2. Successful CT-guided right retroperitoneal abscess drainage. 3. 2 mL opaque, napoles fluid was sent for aerobic and anaerobic cultures. Reviewed, dictated and finalized at location A. IMPRESSION: 1. Successful CT-guided right iliopsoas abscess drainage. 2. Successful CT-guided right retroperitoneal abscess drainage. 3. 2 mL opaque, napoles fluid was sent for aerobic and anaerobic cultures.
--- NOTE | ~2021-12-12 | CT_ITS ---
EXAMINATION: CT abdomen pelvis w con DATE: 12/12/2021 17:04 INDICATION: R groin pain, constipation, periumb abdominal pain TECHNIQUE: Computed tomography (CT) of the abdomen and pelvis was performed with 100 mL Omnipaque-350 intravenous contrast. Automated exposure control and iterative reconstruction technique were employe d. The dose-length product was 765.15 mGy-cm. COMPARISON: None. FINDINGS: Lower thorax: Lingular scar/atelectasis. Liver: Normal. Biliary/Gallbladder: Gallbladder is normal. No bile duct dilation. Pancreas: No mass or duct dilation. Spleen: Granulomatous calcification. Adrenals:No mass. Kidneys: No mass or stone. Moderate right hydronephrosis. Delayed right nephrogram. GI tract: No small or large bowel dilation. Appendix not visualized. Diverticulosis. Mesentery/Peritoneum: No ascites, mass, or free air. Retroperitoneum: 5.8 x 9.1 x 10.2 cm lobular rim-enhancing fluid collection in the right pelvic brim extending along to the right pelvic sidewall. This collection appears to involve/extend from a portio n of the adjacent distal sigmoid, narrows the right ureter, severely narrows the right iliac veins, a nd extends into the right iliopsoas muscles. Pelvis: Mild bladder wall thickening, likely reactive. Soft Tissues: Left iliac lymphadenopathy. 5.4 x 5.7 x 10.5 cm lobular rim-enhancing fluid collection involving the right iliopsoas muscles. Bones: No acute osseous finding. IMPRESSION: 10.2 cm right retroperitoneal/pelvic abscess, possibly originating from a diverticular abscess, causi ng moderate right obstructive uropathy, severely narrowing the traversing right iliac veins, and exte nding into a 10.5 cm right iliopsoas abscess. Reviewed, dictated and finalized at location K. IMPRESSION: 10.2 cm right retroperitoneal/pelvic abscess, possibly originating from a diver ticular abscess, causing moderate right obstructive uropathy, severely narrowin g the traversing right iliac veins, and extending into a 10.5 cm right iliopsoa s abscess.
[2021-12-12 13:36] VITALS: BP 107/65; PULSE 85; RESP 16; TEMP 36.4; O2SAT 99
[2021-12-12 14:40] LABS: Alanine Aminotransferase 75 U/L (6-50); Albumin Level 3.3 g/dL (3.5-5.1); Alkaline Phosphatase 248 U/L (38-126); Anion Gap 11 mmol/L (8-16); Aspartate Amino Transferase 55 U/L (17-59); Bilirubin,Total 0.5 mg/dL (0.2-1.3); Blood Urea Nitrogen 32 mg/dL (9-20); Carbon Dioxide 28 mmol/L (22-30); Chloride 97 mmol/L (98-107); Estimated CRCL calculation 54 ml/min; Estimated Glomerular Filt Rate 52; Glucose 147 mg/dL (65-110); Potassium 5.3 mmol/L (3.4-5.0); Sodium 136 mmol/L (137-145)
[2021-12-12 14:44] LABS: Hematocrit 40.3 % (42.0-52.0); Hemoglobin 12.9 g/dL (14.0-18.0); Mean Corpuscular Hemoglobin 26.8 pg (26-34); Mean Corpuscular Volume 83.8 fl (80-100); Mean Platelet Volume 9.7 fl (7.4-10.4); Platelet Count Result 610 k/mm3 (150-375); Red Blood Count 4.81 M/mm3 (4.6-6.20); Red Cell Distribution Width 14.7 % (11.5-14.5); White Blood Count 13.6 K/mm3 (4.5-10.0)
--- NOTE | 2021-12-12 15:05 | PC.NURSE ---
patient complains of pain in right groin, reports feeling pressure and stabbing
[2021-12-12 15:30] LABS: Band Neutrophils Percent 6 % (0-6); Eosinophils Absolute Manual 0.13 K/mm3 (0.02-0.5); Eosinophils Percent Manual 1 % (0-4); Lymphocytes Absolute Manual 1.22 K/mm3 (1.1-4.5); Metamyelocytes Percent 2 %; Monocytes Absolute Manual 0.54 K/mm3 (0.1-0.90); Monocytes Percent Manual 4 % (3-9); Myelocytes Percent 1 %; Neutrophils Absolute Manual 11.28 K/mm3 (1.3-6.7); Neutrophils Percent Manual 77 % (46-73); Platelet Estimate Increased (Adequate); Total Cells Counted 100
--- NOTE | 2021-12-12 15:42 | ED.MALEGU ---
HPI - Male Genitourinary General Chief complaint: Urogenital-Male <Cheryl Casillas PA-C - Last Filed: 12/12/21 19:03> Stated complaint: right groin pain <Cheryl Casillas PA-C - Last Filed: 12/12/21 19:03> Time Seen by Provider: 12/12/21 15:28 <Cheryl Casillas PA-C - Last Filed: 12/12/21 19:03> History of Present Illness HPI Narrative: Patient is a 61-year-old male with history of prostate cancer here for evaluation of right hip/groin pain over the past week. Pain is there all the time, worse with movement and bearing weight. He has attempted Tylenol without improvement. He did have a fall last week where he landed on the right side, but did not hit his head or lose consciousness. He has not had imaging of his hip yet. Additionally, patient was seen in the emergency department for a wound check to his right knee. He was treated for cellulitis with Keflex with improvement of the redness and swelling of the knee since then. denies any dysuria, urgency or frequency, fevers or chills, incontinence or retention of bowel or bladder, back pain, saddle anesthesia. Denies history of IV drug use or diabetes. <Cheryl Casillas PA-C - Last Filed: 12/12/21 19:03> Related Data Allergies/Adverse reactions: Allergies Allergy/AdvReac Type Severity Reaction Status Date / Time morphine Allergy Unknown HIVES/RASH Verified 12/12/21 13:39 <Cheryl Casillas PA-C - Last Filed: 12/12/21 19:03> Review of Systems Review of Systems: Gen: Denies fevers or chills Eyes: Denies eye pain or visual change ENT: Denies congestion Respiratory: Denies shortness of breath or cough CV: Denies chest pain or palpitations GI: Denies abdominal pain nausea, emesis or diarrhea, constipation : denies burning, urgency, frequency or hematuria Musculoskeletal: Reports right groin pain. Denies back pain Neuro: Denies numbness, tingling, weakness or focal weakness Skin: Reports redness to right knee. Denies rash Except as documented, all other systems reviewed and negative <Cheryl Casillas PA-C - Last Filed: 12/12/21 19:03> PMFSH Past Medical History Medical History: Medical History (Updated 12/12/21 @ 18:58 by Cheryl Casillas PA-C) HTN (hypertension) Lymphadenopathy, axillary Removed Prostate cancer <Cheryl Casillas PA-C - Last Filed: 12/12/21 19:03> Surgical History Surgical History: Surgical History No significant past surgical history <Cheryl Casillas PA-C - Last Filed: 12/12/21 19:03> Family History Family History: Family History Mother Hypertension Father Hypertension <Cheryl Casillas PA-C - Last Filed: 12/12/21 19:03> Social History Social History: Social History Smoking status: Never smoker Alcohol intake: current Gender identity (if verbalized by the patient): Female <Cheryl Casillas PA-C - Last Filed: 12/12/21 19:03> Exam Narrative: APPEARANCE: Well appearing, no pain in distress, well-nourished. Head: Normocephalic and atraumatic. EYES: PERRLA/EOMI, conjunctivae clear NOSE: No nasal drainage EARS: External ear normal in appearance THROAT: Oropharynx is clear. Mucous membranes are moist. NECK: Supple. No adenopathy, no masses. RESPIRATORY: Airway patent, respirations nonlabored. Clear to auscultation bilaterally, no rales, rhonchi, wheezing. CARDIOVASCULAR: Regular rate and rhythm without murmurs, rubs, or gallops. ABDOMINAL: Normoactive bowel sounds. Soft, nontender, nondistended. No rebound tenderness or guarding. : No testicular tenderness or pain. MUSCULOSKELETAL: Tender to palpation in the right inguinal region and along the inguinal ligament on the right. No lymphadenopathy. 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
[2021-12-12] MEDS: KETOROLAC 15 MG/ML VIAL (*BKC) IV PUSH (15:59)
[2021-12-12 16:04] LABS: Appearance Urine Clear (Clear); Color Urine Yellow (Yellow); Glucose Urine UA Negative (Negative); Protein Urine Negative (Negative); Specific Grav Ur >= 1.030 (1.001-1.035); pH Urine 5.5 (5.0-9.0)
[2021-12-12 16:05] LABS: Bilirubin Urine Negative (Negative); Blood Urine 3+ (Negative); Ketones Urine Negative (Negative); Leukocyte Esterase Ur Negative LEU/UL (Negative); Nitrate Urine Negative (Negative); Urobilinogen Urine 0.2 mg/dL (<2.0)
[2021-12-12 16:14] LABS: Mucus Urine Rare /lpf; RBC Urine 51-75 /hpf (0-2); Squamous Epithelial Cell Urine Rare /hpf (Few)
[2021-12-12 16:16] LABS: Add Urine Microscopic? YES
[2021-12-12 16:35] VITALS: BP 147/80; PULSE 70; RESP 16; O2SAT 96
[2021-12-12 17:40] VITALS: BP 138/70; PULSE 74; RESP 16; O2SAT 98
[2021-12-12] MEDS: SODIUM CHLORIDE 0.9% IV 1,000 ML 999 ML IV CONT (17:50)
--- NOTE | 2021-12-12 18:13 | PC.NURSE ---
only 1 set of blood cultures obtained, provider aware and ok to proceed with iv abx
[2021-12-12 18:30] VITALS: BP 129/70; PULSE 79; RESP 18; O2SAT 97
--- NOTE | 2021-12-12 18:30 | PM.IMHP ---
H&P: HPI History of Present Illness Date/Time: 12/12/21 18:30 Chief Complaint: Right side and groin pain. Narrative: This is a very pleasant 61-year-old male with history of prostate cancer status post prostatectomy, hypertension and GERD who presented to the emergency department for evaluation of right side and groin pain. Nearly a week ago he was carrying a large tree limb down a hill when he tripped and fell on to his right side where he also sustained an abrasion to his knee. He was seen in the ED on 12/06/2021 for evaluation due to redness of the knee and continued growing discomfort. At that time he was found to have right inguinal lymphadenopathy in addition to erythema surrounding the right knee abrasion. He was diagnosed with cellulitis and prescribed cephalexin. The erythema and abrasion on the knee have improved however he continues to have pretty significant pain in the right groin and into the right flank and right lower back. He has difficulties describing the pain but it is severe and is worse with palpation, twisting of the back, and even movement of the right hip. It does occasionally radiate down into the right leg. His appetite has not been great, really for about 2 to 3 weeks, and he has also been having night sweats. He was afebrile on arrival to the emergency department with stable vital signs. Pertinent labs include a white blood cell count of 13.6, sodium 136, potassium 5.3, BUN 32, creatinine 1.40, and lactic acid 1.3. X-ray of the right hip showed no acute findings. CT of the abdomen pelvis showed a 10.2 cm right retroperitoneal/pelvic abscess, possibly originating from a diverticular abscess, causing moderate right obstructive uropathy. Review of Systems Review of Systems: Twelve systems were reviewed. No headache. No documented fever. He denies sinus congestion, sore throat, and cough. No chest pain or shortness of breath. He has had issues with swallowing and he has upcoming appointment with his GI doctor for EGD and dilatation. He is also due for repeat colonoscopy, several polyps were removed nearly 10 years ago. He has not noticed any blood or mucus in the stool. He suffers from constipation and he has to taken occasional laxative. Yesterday he even had to manually disimpact. No history of IV drug use. Except as documented, all other systems were reviewed and are negative. [facility] Past Medical History Medical History (Updated 12/12/21 @ 21:32 by Marianna Watt PA-C) Gastroesophageal reflux disease Hypertension Prostate cancer Status post prostatectomy. Surgical History Surgical History (Updated 12/12/21 @ 21:22 by Marianna Watt PA-C) History of hernia repair History of mandibular surgery Repair of right jaw fracture. History of prostatectomy History of tonsillectomy Family History Family History Mother Hypertension Father Hypertension Social History Social History (Updated 12/12/21 @ 21:26 by Marianna Watt PA-C) Social History: Surrogate medical decision maker: Kaylynn Hall, spouse. Code status: Full code. Smoking status: Never smoker Alcohol intake: never Alcohol use details: Very rare alcohol use. Substance use: former Substance use type: crack/cocaine Other substance usage details: No history of IV drug use. Additional living arrangements comments: The patient lives with his . They have 3 grown children. 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 Spiritual care concerns: No Meds Home Medications and Allergies Home Medications Medication Instructions Recorded Confirmed Type cetirizine 5 mg-pseudoephedrine ER 1 tablet PO Q12H PRN nasal 07/13/20 Rx 120 mg tablet,extended congestion #12 tabs release,12hr (Zyrtec-D) fluticasone propionate 50 2 spray intranasal DAILY 14 days 07/13/20 Rx mcg/actuation nasal #15.8 mL spray,suspension (Flonase Allergy
[2021-12-12 18:35] LABS: Lactic Acid Reflex 1.3 mmol/L (0.7-2.0)
[2021-12-12 19:50] VITALS: BP 140/78; PULSE 75; RESP 16; TEMP 37.2; O2SAT 95
[2021-12-12 20:00] VITALS: BP 134/62; PULSE 70; RESP 20; TEMP 36.9; O2SAT 94; BMI 26.4
[2021-12-12] MEDS: SODIUM CHLORIDE 0.9% IV 1,000 ML 100 ML IV CONT (21:53)
[2021-12-12] MEDS: HYDROmorphone HCL INJ (*CRX) 1 MG/ML SYR 0.5 MG IV PUSH (21:54)
--- NOTE | 2021-12-12 23:24 | ADMGEN ---
This patient, Tito Salazar, was admitted to 3 [facility] Surg Room 310-01. Patient/family oriented to hospital policies and general routines including ID bracelet, bed and alarms, visiting hours, pain management, procedures, bathroom and other care routines, personal items, smoking policy, room service/diet, and visiting hours. Information on how to activate the Rapid Response Team has been discussed. Patient/Family are encouraged to report perceived risks to care and to ask questions if they do not understand what they are told or what they should do.
[2021-12-13] MEDS: HYDROmorphone HCL INJ (*CRX) 1 MG/ML SYR 0.5 MG IV PUSH ×3 (02:02→20:48)
[2021-12-13 05:44] LABS: Hematocrit 36.1 % (42.0-52.0); Hemoglobin 11.6 g/dL (14.0-18.0); Mean Corpuscular HGB Conc 32.1 g/dl (32-36); Mean Corpuscular Volume 84.1 fl (80-100); Mean Platelet Volume 9.2 fl (7.4-10.4); Platelet Count Result 526 k/mm3 (150-375); Red Blood Count 4.29 M/mm3 (4.6-6.20); Red Cell Distribution Width 14.7 % (11.5-14.5); White Blood Count 12.7 K/mm3 (4.5-10.0)
[2021-12-13 05:57] VITALS: BP 132/98; PULSE 73; RESP 20; TEMP 36.6; O2SAT 97
[2021-12-13 06:04] LABS: Alanine Aminotransferase 53 U/L (6-50); Albumin Level 2.9 g/dL (3.5-5.1); Alkaline Phosphatase 168 U/L (38-126); Anion Gap 8 mmol/L (8-16); Aspartate Amino Transferase 40 U/L (17-59); Bilirubin,Total 0.5 mg/dL (0.2-1.3); Blood Urea Nitrogen 27 mg/dL (9-20); Calcium 8.3 mg/dL (8.4-10.2); Carbon Dioxide 27 mmol/L (22-30); Chloride 101 mmol/L (98-107); Estimated CRCL calculation 51 ml/min; Estimated Glomerular Filt Rate 48; Glucose 101 mg/dL (65-110); Potassium 5.1 mmol/L (3.4-5.0); Sodium 136 mmol/L (137-145)
[2021-12-13 08:48] LABS: INR 1.3; Prothrombin Time 15.7 Seconds (11.1-14.7)
[2021-12-13 08:49] LABS: Partial Thromboplastin Time 37.3 SECONDS (22.3-36.8)
--- NOTE | 2021-12-13 10:40 | PM.CNGS ---
Assessment and Plan Assessment and plan (1) Pelvic abscess: Status: Acute Assessment and Plan: CT scan reviewed and discussed with the patient in detail. He has a pelvic abscess that is adjacent to the distal sigmoid and extending to the right iliopsoas, and additionally a large iliopsoas abscess. This appears to be amenable to percutaneous drainage. We would recommend to continue broad-spectrum IV antibiotics and will have Radiology try placing one or possibly two drains today. Cultures will then be sent and may help facilitate an answer for where this originated. Etiology is not clear, but could be diverticular abscess or potentially lymphatic seeding from the more distal cellulitis. Given the sequence of symptoms, it is possible that this is from his right leg cellulitis. Regardless, would still recommend he would eventually have a colonoscopy once he has recovered from this acute infection. Thank you for allowing us to see the patient in consultation and we will continue to follow along with you. (2) Iliopsoas abscess on right: Code(s): K68.12 - Psoas muscle abscess Status: Acute (3) Obstructive uropathy: Code(s): N13.9 - Obstructive and reflux uropathy, unspecified Status: Acute Assessment and Plan: It appears the retroperitoneal/pelvic abscess is compressing the right ureter and causing moderate right obstructive uropathy. Plan to go to IR for percutaneous drainage today, which will hopefully relieve the pressure on the ureter. Continue to monitor. (4) Renal insufficiency: Code(s): N28.9 - Disorder of kidney and ureter, unspecified Status: Acute Assessment and Plan: Likely multifactorial due to dehydration and obstructive uropathy. Continue IV fluids for hydration and plan for IR percutaneous drainage today. Continue to trend labs. (5) Dehydration: Code(s): E86.0 - Dehydration Status: Acute Assessment and Plan: Continue IV fluids. (6) Hypertension: Code(s): I10 - Essential (primary) hypertension Status: Acute Plan I have discussed the patient's case and plan of care with Dr. Preston. History of Present Illness Consult details Consult date: 12/13/21 Reason for consult: other (Retroperitoneal/pelvic abscess and right iliopsoas abscess) Requesting physician: Cheryl Casillas PA-C Narrative: This is a 61-year-old male with a history of hypertension and prostate cancer status post robotic assisted prostatectomy in 2017, who about 2-3 weeks ago had a fall while at work and landed on his coccyx. That same day, he also noticed what he assumed was a bug bite on his right knee. After about a week, he began to develope redness and swelling of his right knee. As his knee symptoms worsened, he began to develop right groin and hip pain. He never noticed any spreading erythema or swelling up his leg, but the pain seemed to start extending to his right groin. With these worsening symptoms, he presented to the ER first on 12/06/2021. At that time, he was found to have cellulitis of the right lower extremity and was started on Keflex and sent home. He felt the redness and swelling of the right knee improved, but he continued to have worsening right groin and hip pain. A few days after being on the antibiotics, he began to develop some mild RLQ abdominal pain as well. He states it is not as severe as his right groin pain, but he noticed it was slightly tender when he would move around. His groin pain became so severe he was having difficulty with walking. He began to have a limp and could not even go to work due to the pain. For the past 2 weeks, he has become diaphoretic at night with chills. His checked his temperature and he has remained afebrile. He also reports nausea, but no vomiting. He has not eaten much in the past week and reportedly has not been moving his bowels due to his poor oral intake. He is passing gas. He cannot recall his last
--- NOTE | 2021-12-13 11:51 | PM.IMPN ---
Progress Note: A&P Assessment and Plan (1) Pelvic abscess: Status: Acute Assessment and Plan: Surgical consult Hand IR to see the patient as well. Cultures pending Continue IV antibiotics. (2) Iliopsoas abscess on right: Code(s): K68.12 - Psoas muscle abscess Status: Acute Assessment and Plan: Plan is as detailed above. (3) Obstructive uropathy: Code(s): N13.9 - Obstructive and reflux uropathy, unspecified Status: Acute Assessment and Plan: Abscess seems to be causing a moderate right obstructive uropathy. Hopefully draining the abscess will relieve the pressure on the ureter. He will need a renal ultrasound following drainage to further evaluate. (4) Renal insufficiency: Code(s): N28.9 - Disorder of kidney and ureter, unspecified Status: Acute Assessment and Plan: Likely due to a combination of factors including moderate obstructive uropathy as detailed above in addition to dehydration. He will be judiciously hydrated and we will monitor strict I/O. As above he will need a renal ultrasound after drainage. (5) Dehydration: Code(s): E86.0 - Dehydration Status: Acute Assessment and Plan: Continue IV fluid rehydration as he is currently NPO. (6) Electrolyte abnormality: Code(s): E87.8 - Other disorders of electrolyte and fluid balance, not elsewhere classified Status: Acute Assessment and Plan: Mild hyponatremia and hyperkalemia are likely due to dehydration and renal insufficiency. The should improve with IV fluid rehydration. Will continue to monitor these closely. Subjective Date/time seen: 12/13/21 11:51 No new complaints Exam Narrative: General: Mildly ill, nontoxic appearing male in the semi-Choi position in bed. Weight: 88 kg. BMI: 27.1. HEENT: Wearing glasses. PERRL, EOMI. Sclera anicteric. Tacky mucous membranes. Neck: Supple. Respiratory: Lungs are clear to auscultation bilaterally. Cardiovascular: Regular rate and rhythm with S1-S2. Gastrointestinal: Abdomen is nondistended was hypoactive bowel sounds. He is tender to percussion in the left lower quadrant suprapubic region as well as in the right mid and upper quadrant. He is tender on the right flank and right lower back as well. He does have tender right inguinal lymphadenopathy as well. Pain is worse with internal external rotation of the right hip. Skin: Warm and dry. Small abrasion on the right knee with surrounding hyperpigmentation. Extremities: No cyanosis, clubbing, or edema. Radial and pedal pulses intact. Neurological: Alert. Cranial nerves 2-12 are grossly intact. No gross focal deficits to casual conversation. Psychiatric: Pleasant and cooperative with normal mood. Slightly anxious. Objective Data Vital Signs Vital Signs: Vital Signs - 24 hr 12/12/21 13:36 12/12/21 16:35 12/12/21 19:50 Temperature 97.6 F 98.9 F Pulse Rate 85 70 75 Respiratory Rate 16 16 16 Blood Pressure 107/65 147/80 H 140/78 Pulse Oximetry 99 96 95 Oxygen Delivery Room Air 12/12/21 17:40 12/12/21 18:30 12/12/21 20:00 Temperature 98.5 F Pulse Rate 74 79 70 Respiratory Rate 16 18 20 Blood Pressure 138/70 129/70 134/62 Pulse Oximetry 98 97 94 Oxygen Delivery 12/12/21 23:22 12/13/21 05:57 12/13/21 09:40 Temperature 97.8 F Pulse Rate 73 Respiratory Rate 20 Blood Pressure 132/98 H Pulse Oximetry 97 Oxygen Delivery Room Air Room Air Intake/Output Intake/Output: Intake & Output 12/10/21 12/11/21 12/12/21 12/13/21 23:59 23:59 23:59 23:59 Intake Total 1365 100 Output Total 450 Balance 1365 -350 Meds/Results Medications: Active Medications Generic Name Dose Route Start Last Admin Trade Name Freq PRN Reason Stop Dose Admin Bupropion HCl 200 mg 12/13/21 09:00 Bupropion Hcl Sr (12hr) 100 Mg Tabcr PO DAILY DARRYN Clonidine HCl 0.1 mg 12/13/21 21:00 Clonidine Hcl 0.
[2021-12-13 12:38] VITALS: BP 132/98; PULSE 73; RESP 20; O2SAT 97
[2021-12-13 13:57] VITALS: BP 144/81; PULSE 75; RESP 18; TEMP 36.3; O2SAT 96
[2021-12-13] MEDS: SERTRALINE HCL 50 MG TABLET 150 MG PO (16:37)
[2021-12-13] MEDS: buPROPion HCL SR (12HR) 100 MG TABCR 200 MG PO (17:59)
[2021-12-13] MEDS: lisinopriL 10 MG TABLET PO (17:59)
[2021-12-13] MEDS: OLANZapine 2.5 MG TABLET 7.5 MG PO (20:49)
[2021-12-13] MEDS: QUEtiapine FUMARATE XR 200 MG TAB.ER.24H 400 MG PO (20:49)
[2021-12-13] MEDS: hydrOXYzine pamoate 25 MG CAPSULE 50 MG PO (20:49)
[2021-12-13] MEDS: cloNIDine HCL 0.1 MG TABLET PO (20:49)
[2021-12-13] MEDS: SODIUM CHLORIDE 0.9% IV 1,000 ML 100 ML IV CONT (21:17)
[2021-12-13 21:57] VITALS: BP 144/88; PULSE 69; RESP 18; TEMP 36.4; O2SAT 96
[2021-12-14 06:00] VITALS: BP 106/60; PULSE 67; RESP 18; TEMP 36.5; O2SAT 96
[2021-12-14 06:50] LABS: Hematocrit 37.8 % (42.0-52.0); Hemoglobin 11.9 g/dL (14.0-18.0); Mean Corpuscular HGB Conc 31.5 g/dl (32-36); Mean Corpuscular Hemoglobin 26.7 pg (26-34); Mean Corpuscular Volume 84.8 fl (80-100); Mean Platelet Volume 9.2 fl (7.4-10.4); Platelet Count Result 553 k/mm3 (150-375); Red Blood Count 4.46 M/mm3 (4.6-6.20); Red Cell Distribution Width 14.7 % (11.5-14.5); White Blood Count 9.3 K/mm3 (4.5-10.0)
[2021-12-14 07:03] LABS: Anion Gap 9 mmol/L (8-16); Blood Urea Nitrogen 17 mg/dL (9-20); Carbon Dioxide 30 mmol/L (22-30); Chloride 99 mmol/L (98-107); Estimated CRCL calculation 58 ml/min; Estimated Glomerular Filt Rate 57; Glucose 104 mg/dL (65-110); Potassium 4.9 mmol/L (3.4-5.0); Sodium 138 mmol/L (137-145)
[2021-12-14 07:36] LABS: Band Neutrophils Percent 16 % (0-6); Basophils Absolute Manual 0.09 K/mm3 (0.0-0.1); Basophils Percent Manual 1 % (0-1); Eosinophils Absolute Manual 0.55 K/mm3 (0.02-0.5); Eosinophils Percent Manual 6 % (0-4); Lymphocytes Absolute Manual 0.74 K/mm3 (1.1-4.5); Metamyelocytes Percent 2 %; Monocytes Absolute Manual 0.27 K/mm3 (0.1-0.90); Monocytes Percent Manual 3 % (3-9); Myelocytes Percent 2 %; Neutrophils Absolute Manual 7.25 K/mm3 (1.3-6.7); Neutrophils Percent Manual 62 % (46-73); Total Cells Counted 100
[2021-12-14 07:37] LABS: Atypical Lymphocytes Present; Platelet Estimate Increased (Adequate)
[2021-12-14] MEDS: SODIUM CHLORIDE 0.9% IV 1,000 ML 100 ML IV CONT ×2 (08:04→16:57)
[2021-12-14] MEDS: SERTRALINE HCL 50 MG TABLET 150 MG PO (08:05)
[2021-12-14] MEDS: ENOXAPARIN 40 MG/0.4 ML SYRINGE SUB-Q (08:05)
[2021-12-14] MEDS: hydrOXYzine pamoate 25 MG CAPSULE 100 MG PO (08:05)
[2021-12-14] MEDS: lisinopriL 10 MG TABLET PO (08:06)
[2021-12-14] MEDS: buPROPion HCL SR (12HR) 100 MG TABCR 200 MG PO (08:06)
[2021-12-14] MEDS: HYDROmorphone HCL INJ (*CRX) 1 MG/ML SYR 0.5 MG IV PUSH ×4 (08:11→23:34)
[2021-12-14 11:01] VITALS: O2SAT 94
--- NOTE | 2021-12-14 11:40 | PM.IMPN ---
Progress Note: A&P Assessment and Plan (1) Pelvic abscess: Status: Acute Assessment and Plan: Surgical consult Hand IR to see the patient as well. Cultures pending Continue IV antibiotics. (2) Iliopsoas abscess on right: Code(s): K68.12 - Psoas muscle abscess Status: Acute Assessment and Plan: Plan is as detailed above. (3) Obstructive uropathy: Code(s): N13.9 - Obstructive and reflux uropathy, unspecified Status: Acute Assessment and Plan: Monitor kidney function (4) Renal insufficiency: Code(s): N28.9 - Disorder of kidney and ureter, unspecified Status: Acute Assessment and Plan: Likely secondary to above. (5) Dehydration: Code(s): E86.0 - Dehydration Status: Acute Assessment and Plan: Resolved (6) Electrolyte abnormality: Code(s): E87.8 - Other disorders of electrolyte and fluid balance, not elsewhere classified Status: Acute Assessment and Plan: Mild hyponatremia and hyperkalemia are likely due to dehydration and renal insufficiency. The should improve with IV fluid rehydration. Will continue to monitor these closely. Subjective Date/time seen: 12/14/21 11:40 No complaints. Status post drains placed Exam Narrative: General: Mildly ill, nontoxic appearing male in the semi-Choi position in bed. Weight: 88 kg. BMI: 27.1. HEENT: Wearing glasses. PERRL, EOMI. Sclera anicteric. Tacky mucous membranes. Neck: Supple. Respiratory: Lungs are clear to auscultation bilaterally. Cardiovascular: Regular rate and rhythm with S1-S2. Gastrointestinal: Abdomen is nondistended was hypoactive bowel sounds. He is tender to percussion in the left lower quadrant suprapubic region as well as in the right mid and upper quadrant. He is tender on the right flank and right lower back as well. He does have tender right inguinal lymphadenopathy as well. Pain is worse with internal external rotation of the right hip. Skin: Warm and dry. Small abrasion on the right knee with surrounding hyperpigmentation. Extremities: No cyanosis, clubbing, or edema. Radial and pedal pulses intact. Neurological: Alert. Cranial nerves 2-12 are grossly intact. No gross focal deficits to casual conversation. Psychiatric: Pleasant and cooperative with normal mood. Slightly anxious. Objective Data Vital Signs Vital Signs: Vital Signs - 24 hr 12/13/21 12:38 12/13/21 13:57 12/13/21 21:57 Temperature 97.3 F L 97.6 F Pulse Rate 73 75 69 Respiratory Rate 20 18 18 Blood Pressure 132/98 H 144/81 H 144/88 H Pulse Oximetry 97 96 96 Oxygen Delivery 12/13/21 20:00 12/14/21 06:00 12/14/21 08:00 Temperature 97.7 F Pulse Rate 67 Respiratory Rate 18 Blood Pressure 106/60 Pulse Oximetry 96 Oxygen Delivery Room Air Room Air 12/14/21 11:01 Temperature Pulse Rate Respiratory Rate Blood Pressure Pulse Oximetry 94 Oxygen Delivery Room Air Intake/Output Intake/Output: Intake & Output 12/11/21 12/12/21 12/13/21 12/14/21 23:59 23:59 23:59 23:59 Intake Total 1365 2240 1300 Output Total 1307 800 Balance 1365 933 500 Meds/Results Medications: Active Medications Generic Name Dose Route Start Last Admin Trade Name Freq PRN Reason Stop Dose Admin Bupropion HCl 200 mg 12/13/21 09:00 12/14/21 08:06 Bupropion Hcl Sr (12hr) 100 Mg Tabcr PO 200 mg DAILY DARRYN Administration Clonidine HCl 0.1 mg 12/13/21 21:00 12/13/21 20:49 Clonidine Hcl 0.1 Mg Tablet PO 0.1 mg HS DARRYN Administration Enoxaparin Sodium 40 mg 12/13/21 09:00 12/14/21 08:05 Enoxaparin 40 Mg/0.4 Ml Syringe SUB-Q 40 mg DAILY DARRYN Administration Hydromorphone HCl 0.5 mg 12/12/21 21:11 12/14/21 08:11 Hydromorphone Hcl Inj (*Crx) 1 Mg/Ml Syr IV PUSH 0.5 mg Q3H PRN Administration Pain Rated 7-10 Hydroxyzine Pamoate 50 mg 12/13/21 21:00 12/13/21 20:49 Hydroxyzine Pamoate 2
--- NOTE | 2021-12-14 12:25 | PM.PNGS ---
Progress Note: A&P Assessment and Plan (1) Iliopsoas abscess on right: Code(s): K68.12 - Psoas muscle abscess Status: Acute Assessment and Plan: G stain shows Gram-positive cocci and many white blood cells. Draining very purulent appearing fluid. Large volume drained 1st 24 hours. Patient will need drains in place for nearly a week. Having less pain and looks better status post drainage procedure yesterday. Continue IV antibiotics. Hopefully home with drains in in a few days. Subjective Subjective Date/Time Seen: 12/14/21 12:25 Post Op day: 1 (Perc drainage two large iliopsoas abscesses) Patient reports: feels better and pain is less Review of Systems Review of Systems: All systems reviewed & are unremarkable except as noted in HPI and below (HPI and those items noted below) Constitutional: Constitutional: Denies chills and Denies fever(s) Cardiovascular: Cardiovascular: Denies chest pain, Denies diaphoresis, Denies dyspnea and Denies paroxysmal nocturnal dyspnea Respiratory: Respiratory: Denies chest congestion, Denies cough and Denies dyspnea Integumentary/Breasts: Skin/Breast: Denies lesions and Denies rash Exam Const: General: cooperative, comfortable, no acute distress, awake and tired appearing Nutritional Appearance: average body habitus Orientation/consciousness: No confusion GI: Inspection: normal to inspection, non-distended and other (Pigtail catheters right lower quadrant draining purulent fluid) GI Palp: No abdominal tenderness, Yes Soft to palpation, No Tenderness to palpation present (GI), No Palpable mass present and No Ascites present Auscultation: normal bowel sounds Objective Data Vital Signs Vital Signs: Vital Signs - 24 hr 12/13/21 12:38 12/13/21 13:57 12/13/21 21:57 Temperature 36.3 C L 36.4 C Pulse Rate 73 75 69 Respiratory Rate 20 18 18 Blood Pressure 132/98 H 144/81 H 144/88 H Pulse Oximetry 97 96 96 Oxygen Delivery 12/13/21 20:00 12/14/21 06:00 12/14/21 08:00 Temperature 36.5 C Pulse Rate 67 Respiratory Rate 18 Blood Pressure 106/60 Pulse Oximetry 96 Oxygen Delivery Room Air Room Air 12/14/21 11:01 Temperature Pulse Rate Respiratory Rate Blood Pressure Pulse Oximetry 94 Oxygen Delivery Room Air Intake/Output Intake/Output: Intake & Output 12/11/21 12/12/21 12/13/21 12/14/21 23:59 23:59 23:59 23:59 Intake Total 1365 2240 1300 Output Total 1307 800 Balance 1365 933 500 Meds/Results Medications: Active Medications Generic Name Dose Route Start Last Admin Trade Name Freq PRN Reason Stop Dose Admin Bupropion HCl 200 mg 12/13/21 09:00 12/14/21 08:06 Bupropion Hcl Sr (12hr) 100 Mg Tabcr PO 200 mg DAILY DARRYN Administration Clonidine HCl 0.1 mg 12/13/21 21:00 12/13/21 20:49 Clonidine Hcl 0.1 Mg Tablet PO 0.1 mg HS DARRYN Administration Enoxaparin Sodium 40 mg 12/13/21 09:00 12/14/21 08:05 Enoxaparin 40 Mg/0.4 Ml Syringe SUB-Q 40 mg DAILY DARRYN Administration Hydromorphone HCl 0.5 mg 12/12/21 21:11 12/14/21 08:11 Hydromorphone Hcl Inj (*Crx) 1 Mg/Ml Syr IV PUSH 0.5 mg Q3H PRN Administration Pain Rated 7-10 Hydroxyzine Pamoate 50 mg 12/13/21 21:00 12/13/21 20:49 Hydroxyzine Pamoate 25 Mg Capsule PO 01/12/22 20:59 50 mg HS DARRYN Administration Hydroxyzine Pamoate 100 mg 12/13/21 09:00 12/14/21 08:05 Hydroxyzine Pamoate 25 Mg Capsule PO 01/12/22 08:59 100 mg DAILY DARRYN Administration Vancomycin HCl 1,250 mg in 250 mls @ 200 mls/hr 12/13/21 18:00 12/13/21 20:00 Vancomycin 1,250 Mg/D5w 250 Ml IVPB Infused Q24H DARRYN Infusion Piperacillin/Tazobactam/Dextrose 3.375 gm in 50 mls @ 100 mls/hr 12/13/21 00:30 12/14/21 12:08 Zosyn 3.375 Gm/D5w 50ml Pm IVPB 100 mls/hr Q6HR DARRYN Administration Sodium Chloride 1,000 mls @ 100 mls/hr 12/12/21 21:40 12/14/21 08:04 Normal Saline Iv IV CONT 100 mls/hr .Q10H DARRYN Administration
[2021-12-14 14:00] VITALS: BP 119/64; PULSE 75; RESP 18; TEMP 36.1; O2SAT 95
[2021-12-14 20:00] VITALS: PULSE 71; RESP 16; O2SAT 97
[2021-12-14 20:22] VITALS: BP 120/73; PULSE 71; RESP 16; TEMP 36.9; O2SAT 97
[2021-12-14] MEDS: OLANZapine 2.5 MG TABLET 7.5 MG PO (21:30)
[2021-12-14] MEDS: QUEtiapine FUMARATE XR 200 MG TAB.ER.24H 400 MG PO (21:30)
[2021-12-14] MEDS: hydrOXYzine pamoate 25 MG CAPSULE 50 MG PO (21:31)
[2021-12-14] MEDS: cloNIDine HCL 0.1 MG TABLET PO (21:31)
[2021-12-15] MEDS: SODIUM CHLORIDE 0.9% IV 1,000 ML 100 ML IV CONT ×2 (04:04→17:25)
[2021-12-15 06:00] VITALS: BP 120/63; PULSE 62; RESP 17; TEMP 36.2; O2SAT 96
[2021-12-15] MEDS: ENOXAPARIN 40 MG/0.4 ML SYRINGE SUB-Q (08:09)
[2021-12-15] MEDS: buPROPion HCL SR (12HR) 100 MG TABCR 200 MG PO (08:09)
[2021-12-15] MEDS: hydrOXYzine pamoate 25 MG CAPSULE 100 MG PO (08:09)
[2021-12-15] MEDS: SERTRALINE HCL 50 MG TABLET 150 MG PO (08:09)
[2021-12-15] MEDS: HYDROmorphone HCL INJ (*CRX) 1 MG/ML SYR 0.5 MG IV PUSH ×4 (08:09→20:54)
[2021-12-15] MEDS: lisinopriL 10 MG TABLET PO (08:10)
--- NOTE | 2021-12-15 10:58 | PM.PNGS ---
Progress Note: A&P Assessment and Plan (1) Iliopsoas abscess on right: Code(s): K68.12 - Psoas muscle abscess Status: Acute Assessment and Plan: improved s/p perc drainage x 2, cont abx, ok to dc c drains and abx from surgical standpoint, f/u c Dr Preston in 1 wk if dc'd Subjective Subjective Date/Time Seen: 12/15/21 10:58 feels much better, reports some mild pain at drain sites Review of Systems Review of Systems: All systems reviewed & are unremarkable except as noted in HPI and below Exam Const: General: cooperative, comfortable and no acute distress Resp: Auscultation: clear to auscultation bilaterally Cardio: Rate: regular rate Rhythm: regular rhythm GI: Inspection: normal to inspection, no edema and non-distended GI Palp: Yes abdominal tenderness, Yes Soft to palpation, Yes Tenderness to palpation present (GI), No Guarding due to palpation present (GI) and No Rigid due to palpation Other: perc drain x 2 draining purulent material Objective Data Vital Signs Vital Signs: Vital Signs - 24 hr 12/14/21 11:01 12/14/21 14:00 12/14/21 20:22 Temperature 36.1 C L 36.9 C Pulse Rate 75 71 Respiratory Rate 18 16 Blood Pressure 119/64 120/73 Pulse Oximetry 94 95 97 Oxygen Delivery Room Air 12/14/21 20:00 12/15/21 06:00 12/15/21 08:00 Temperature 36.2 C L Pulse Rate 71 62 Respiratory Rate 16 17 Blood Pressure 120/63 Pulse Oximetry 97 96 Oxygen Delivery Room Air Room Air Intake/Output Intake/Output: Intake & Output 12/12/21 12/13/21 12/14/21 12/15/21 23:59 23:59 23:59 23:59 Intake Total 1365 2240 4187 1740 Output Total 1307 1100 Balance 8471 970 1516 1740 Meds/Results Medications: Active Medications Generic Name Dose Route Start Last Admin Trade Name Freq PRN Reason Stop Dose Admin Bupropion HCl 200 mg 12/13/21 09:00 12/15/21 08:09 Bupropion Hcl Sr (12hr) 100 Mg Tabcr PO 200 mg DAILY DARRYN Administration Clonidine HCl 0.1 mg 12/13/21 21:00 12/14/21 21:31 Clonidine Hcl 0.1 Mg Tablet PO 0.1 mg HS DARRYN Administration Enoxaparin Sodium 40 mg 12/13/21 09:00 12/15/21 08:09 Enoxaparin 40 Mg/0.4 Ml Syringe SUB-Q 40 mg DAILY DARRYN Administration Hydromorphone HCl 0.5 mg 12/12/21 21:11 12/15/21 08:09 Hydromorphone Hcl Inj (*Crx) 1 Mg/Ml Syr IV PUSH 0.5 mg Q3H PRN Administration Pain Rated 7-10 Hydroxyzine Pamoate 50 mg 12/13/21 21:00 12/14/21 21:31 Hydroxyzine Pamoate 25 Mg Capsule PO 01/12/22 20:59 50 mg HS DARRYN Administration Hydroxyzine Pamoate 100 mg 12/13/21 09:00 12/15/21 08:09 Hydroxyzine Pamoate 25 Mg Capsule PO 01/12/22 08:59 100 mg DAILY DARRYN Administration Vancomycin HCl 1,250 mg in 250 mls @ 200 mls/hr 12/13/21 18:00 12/14/21 18:19 Vancomycin 1,250 Mg/D5w 250 Ml IVPB Infused Q24H DARRYN Infusion Piperacillin/Tazobactam/Dextrose 3.375 gm in 50 mls @ 100 mls/hr 12/13/21 00:30 12/15/21 06:03 Zosyn 3.375 Gm/D5w 50ml Pm IVPB 100 mls/hr Q6HR DARRYN Administration Sodium Chloride 1,000 mls @ 100 mls/hr 12/12/21 21:40 12/15/21 04:04 Normal Saline Iv IV CONT 100 mls/hr .Q10H DARRYN Administration Lisinopril 10 mg 12/13/21 09:00 12/15/21 08:10 Lisinopril 10 Mg Tablet PO 10 mg DAILY DARRYN Administration Olanzapine 7.5 mg 12/13/21 21:00 12/14/21 21:30 Olanzapine 2.5 Mg Tablet PO 01/12/22 20:59 7.5 mg HS DARRYN Administration Ondansetron HCl 4 mg 12/12/21 18:21 Ondansetron Inj 4 Mg/2 Ml Vial IV PUSH Q4H PRN Nausea Quetiapine Fumarate 400 mg 12/13/21 21:00 12/14/21 21:30 Quetiapine Fumarate Xr 200 Mg Tab.Er.24h PO 400 mg HS DARRYN Administration Sertraline HCl 150 mg 12/13/21 09:00 12/15/21 08:09 Sertraline Hcl 50 Mg Tablet PO 150 mg DAILY DARRYN Administration Radiology Results: ITS Impressions Hip X-Ray 12/12/21 16:02 IMPRESSION: No acute osseous finding in the right hip. Abdomen/Pelvis CT 12/12/21
--- NOTE | 2021-12-15 12:39 | PM.IMPN ---
Progress Note: A&P Assessment and Plan (1) Pelvic abscess: Status: Acute Assessment and Plan: Surgical consult Hand IR to see the patient as well. Cultures pending Continue IV antibiotics. (2) Iliopsoas abscess on right: Code(s): K68.12 - Psoas muscle abscess Status: Acute Assessment and Plan: Plan is as detailed above. (3) Obstructive uropathy: Code(s): N13.9 - Obstructive and reflux uropathy, unspecified Status: Acute Assessment and Plan: Monitor kidney function (4) Renal insufficiency: Code(s): N28.9 - Disorder of kidney and ureter, unspecified Status: Acute Assessment and Plan: Likely secondary to above. (5) Dehydration: Code(s): E86.0 - Dehydration Status: Acute Assessment and Plan: Resolved (6) Electrolyte abnormality: Code(s): E87.8 - Other disorders of electrolyte and fluid balance, not elsewhere classified Status: Acute Assessment and Plan: Mild hyponatremia and hyperkalemia are likely due to dehydration and renal insufficiency. The should improve with IV fluid rehydration. Will continue to monitor these closely. Subjective Date/time seen: 12/15/21 12:39 No new complaints Exam Narrative: General: Mildly ill, nontoxic appearing male in the semi-Choi position in bed. Weight: 88 kg. BMI: 27.1. HEENT: Wearing glasses. PERRL, EOMI. Sclera anicteric. Tacky mucous membranes. Neck: Supple. Respiratory: Lungs are clear to auscultation bilaterally. Cardiovascular: Regular rate and rhythm with S1-S2. Gastrointestinal: Abdomen is nondistended was hypoactive bowel sounds. He is tender to percussion in the left lower quadrant suprapubic region as well as in the right mid and upper quadrant. He is tender on the right flank and right lower back as well. He does have tender right inguinal lymphadenopathy as well. Pain is worse with internal external rotation of the right hip. Skin: Warm and dry. Small abrasion on the right knee with surrounding hyperpigmentation. Extremities: No cyanosis, clubbing, or edema. Radial and pedal pulses intact. Neurological: Alert. Cranial nerves 2-12 are grossly intact. No gross focal deficits to casual conversation. Psychiatric: Pleasant and cooperative with normal mood. Slightly anxious. Objective Data Vital Signs Vital Signs: Vital Signs - 24 hr 12/14/21 14:00 12/14/21 20:22 12/14/21 20:00 Temperature 97 F L 98.4 F Pulse Rate 75 71 71 Respiratory Rate 18 16 16 Blood Pressure 119/64 120/73 Pulse Oximetry 95 97 97 Oxygen Delivery Room Air 12/15/21 06:00 12/15/21 08:00 Temperature 97.2 F L Pulse Rate 62 Respiratory Rate 17 Blood Pressure 120/63 Pulse Oximetry 96 Oxygen Delivery Room Air Intake/Output Intake/Output: Intake & Output 12/12/21 12/13/21 12/14/21 12/15/21 23:59 23:59 23:59 23:59 Intake Total 1365 2240 4187 1790 Output Total 1307 1100 Balance 0781 915 2866 1790 Meds/Results Medications: Active Medications Generic Name Dose Route Start Last Admin Trade Name Freq PRN Reason Stop Dose Admin Bupropion HCl 200 mg 12/13/21 09:00 12/15/21 08:09 Bupropion Hcl Sr (12hr) 100 Mg Tabcr PO 200 mg DAILY DARRYN Administration Clonidine HCl 0.1 mg 12/13/21 21:00 12/14/21 21:31 Clonidine Hcl 0.1 Mg Tablet PO 0.1 mg HS DARRYN Administration Enoxaparin Sodium 40 mg 12/13/21 09:00 12/15/21 08:09 Enoxaparin 40 Mg/0.4 Ml Syringe SUB-Q 40 mg DAILY DARRYN Administration Hydromorphone HCl 0.5 mg 12/12/21 21:11 12/15/21 11:06 Hydromorphone Hcl Inj (*Crx) 1 Mg/Ml Syr IV PUSH 0.5 mg Q3H PRN Administration Pain Rated 7-10 Hydroxyzine Pamoate 50 mg 12/13/21 21:00 12/14/21 21:31 Hydroxyzine Pamoate 25 Mg Capsule PO 01/12/22 20:59 50 mg HS DARRYN Administration Hydroxyzine Pamoate 100 mg 12/13/21 09:00 12/15/21 08:09 Hydroxyzine Pamoate 25 Mg Capsule PO
[2021-12-15 14:00] VITALS: BP 131/81; PULSE 85; RESP 18; TEMP 36.6; O2SAT 97
[2021-12-15 18:54] LABS: Vancomycin Trough 6.1 ug/mL (10.0-20.0)
[2021-12-15 20:00] VITALS: PULSE 70; RESP 16; O2SAT 96
[2021-12-15] MEDS: OLANZapine 2.5 MG TABLET 7.5 MG PO (20:16)
[2021-12-15] MEDS: cloNIDine HCL 0.1 MG TABLET PO (20:16)
[2021-12-15] MEDS: QUEtiapine FUMARATE XR 200 MG TAB.ER.24H 400 MG PO (20:17)
[2021-12-15] MEDS: hydrOXYzine pamoate 25 MG CAPSULE 50 MG PO (20:17)
[2021-12-15 21:32] VITALS: BP 139/81; PULSE 70; RESP 16; TEMP 36.6; O2SAT 96
[2021-12-16 05:50] VITALS: BP 127/72; PULSE 70; RESP 16; TEMP 36.6; O2SAT 96
[2021-12-16] MEDS: HYDROmorphone HCL INJ (*CRX) 1 MG/ML SYR 0.5 MG IV PUSH ×3 (08:24→15:38)
[2021-12-16] MEDS: buPROPion HCL SR (12HR) 100 MG TABCR 200 MG PO (08:25)
[2021-12-16] MEDS: ENOXAPARIN 40 MG/0.4 ML SYRINGE SUB-Q (08:25)
[2021-12-16] MEDS: lisinopriL 10 MG TABLET PO (08:25)
[2021-12-16] MEDS: SERTRALINE HCL 50 MG TABLET 150 MG PO (08:25)
[2021-12-16] MEDS: hydrOXYzine pamoate 25 MG CAPSULE 100 MG PO (08:25)
--- NOTE | 2021-12-16 10:53 | PM.IMPN ---
Progress Note: A&P Assessment and Plan (1) Pelvic abscess: Status: Acute Assessment and Plan: Currently with drains Cultures pending Continue IV antibiotics. (2) Iliopsoas abscess on right: Code(s): K68.12 - Psoas muscle abscess Status: Acute Assessment and Plan: Plan is as detailed above. (3) Obstructive uropathy: Code(s): N13.9 - Obstructive and reflux uropathy, unspecified Status: Acute Assessment and Plan: Monitor kidney function (4) Renal insufficiency: Code(s): N28.9 - Disorder of kidney and ureter, unspecified Status: Acute Assessment and Plan: Likely secondary to above. (5) Dehydration: Code(s): E86.0 - Dehydration Status: Acute Assessment and Plan: Resolved (6) Electrolyte abnormality: Code(s): E87.8 - Other disorders of electrolyte and fluid balance, not elsewhere classified Status: Acute Assessment and Plan: Mild hyponatremia and hyperkalemia are likely due to dehydration and renal insufficiency. The should improve with IV fluid rehydration. Will continue to monitor these closely. Subjective Date/time seen: 12/16/21 10:53 No new complaints Exam Narrative: General: Mildly ill, nontoxic appearing male in the semi-Choi position in bed. Weight: 88 kg. BMI: 27.1. HEENT: Wearing glasses. PERRL, EOMI. Sclera anicteric. Tacky mucous membranes. Neck: Supple. Respiratory: Lungs are clear to auscultation bilaterally. Cardiovascular: Regular rate and rhythm with S1-S2. Gastrointestinal: Abdomen is nondistended was hypoactive bowel sounds. He is tender to percussion in the left lower quadrant suprapubic region as well as in the right mid and upper quadrant. He is tender on the right flank and right lower back as well. He does have tender right inguinal lymphadenopathy as well. Pain is worse with internal external rotation of the right hip. Skin: Warm and dry. Small abrasion on the right knee with surrounding hyperpigmentation. Extremities: No cyanosis, clubbing, or edema. Radial and pedal pulses intact. Neurological: Alert. Cranial nerves 2-12 are grossly intact. No gross focal deficits to casual conversation. Psychiatric: Pleasant and cooperative with normal mood. Slightly anxious. Objective Data Vital Signs Vital Signs: Vital Signs - 24 hr 12/15/21 14:00 12/15/21 21:32 12/15/21 20:00 Temperature 97.9 F 97.9 F Pulse Rate 85 70 70 Respiratory Rate 18 16 16 Blood Pressure 131/81 139/81 Pulse Oximetry 97 96 96 Oxygen Delivery Room Air 12/16/21 05:50 12/16/21 08:15 Temperature 97.9 F Pulse Rate 70 Respiratory Rate 16 Blood Pressure 127/72 Pulse Oximetry 96 Oxygen Delivery Room Air Intake/Output Intake/Output: Intake & Output 12/13/21 12/14/21 12/15/21 12/16/21 23:59 23:59 23:59 23:59 Intake Total 2240 4187 3555 660 Output Total 1307 1100 3000 160 Balance 933 3087 555 500 Meds/Results Medications: Active Medications Generic Name Dose Route Start Last Admin Trade Name Freq PRN Reason Stop Dose Admin Bupropion HCl 200 mg 12/13/21 09:00 12/16/21 08:25 Bupropion Hcl Sr (12hr) 100 Mg Tabcr PO 200 mg DAILY DARRYN Administration Clonidine HCl 0.1 mg 12/13/21 21:00 12/15/21 20:16 Clonidine Hcl 0.1 Mg Tablet PO 0.1 mg HS DARRYN Administration Enoxaparin Sodium 40 mg 12/13/21 09:00 12/16/21 08:25 Enoxaparin 40 Mg/0.4 Ml Syringe SUB-Q 40 mg DAILY DARRYN Administration Hydromorphone HCl 0.5 mg 12/12/21 21:11 12/16/21 08:24 Hydromorphone Hcl Inj (*Crx) 1 Mg/Ml Syr IV PUSH 0.5 mg Q3H PRN Administration Pain Rated 7-10 Hydroxyzine Pamoate 50 mg 12/13/21 21:00 12/15/21 20:17 Hydroxyzine Pamoate 25 Mg Capsule PO 01/12/22 20:59 50 mg HS DARRYN Administration Hydroxyzine Pamoate 100 mg 12/13/21 09:00 12/16/21 08:25 Hydroxyzine Pamoate 25 Mg Capsule PO 01/12/22 08:59 100 mg DAILY DARRYN
[2021-12-16] MEDS: SODIUM CHLORIDE 0.9% IV 1,000 ML 100 ML IV CONT (12:12)
[2021-12-16 14:09] VITALS: BP 100/57; PULSE 56; RESP 16; TEMP 36.2; O2SAT 98
[2021-12-16] MEDS: oxyCODONE/ACETAMINOPHEN (*CRX) 10-325 MG TABLET 1 TAB PO ×2 (18:16→22:42)
[2021-12-16 20:00] VITALS: PULSE 54; RESP 16; O2SAT 96
[2021-12-16] MEDS: QUEtiapine FUMARATE XR 200 MG TAB.ER.24H 400 MG PO (21:09)
[2021-12-16] MEDS: hydrOXYzine pamoate 25 MG CAPSULE 50 MG PO (21:09)
[2021-12-16] MEDS: OLANZapine 2.5 MG TABLET 7.5 MG PO (21:09)
[2021-12-16] MEDS: cloNIDine HCL 0.1 MG TABLET PO (21:18)
[2021-12-16 22:00] VITALS: BP 108/47; PULSE 54; RESP 16; TEMP 36.1; O2SAT 96
[2021-12-17 05:42] VITALS: BP 116/61; PULSE 63; RESP 14; TEMP 36.2; O2SAT 93
[2021-12-17] MEDS: oxyCODONE/ACETAMINOPHEN (*CRX) 10-325 MG TABLET 1 TAB PO ×3 (06:01→14:30)
[2021-12-17 06:06] LABS: Hematocrit 39.2 % (42.0-52.0); Hemoglobin 12.4 g/dL (14.0-18.0); Mean Corpuscular HGB Conc 31.6 g/dl (32-36); Mean Corpuscular Hemoglobin 26.3 pg (26-34); Mean Corpuscular Volume 83.2 fl (80-100); Mean Platelet Volume 9.1 fl (7.4-10.4); Platelet Count Result 513 k/mm3 (150-375); Red Blood Count 4.71 M/mm3 (4.6-6.20); Red Cell Distribution Width 14.6 % (11.5-14.5); White Blood Count 6.1 K/mm3 (4.5-10.0)
[2021-12-17 06:17] LABS: Anion Gap 7 mmol/L (8-16); Blood Urea Nitrogen 16 mg/dL (9-20); Carbon Dioxide 28 mmol/L (22-30); Chloride 100 mmol/L (98-107); Estimated CRCL calculation 58 ml/min; Estimated Glomerular Filt Rate 57; Glucose 112 mg/dL (65-110); Potassium 4.5 mmol/L (3.4-5.0); Sodium 135 mmol/L (137-145)
[2021-12-17 06:44] LABS: Vancomycin Trough 18.4 ug/mL (10.0-20.0)
[2021-12-17] MEDS: lisinopriL 10 MG TABLET PO (09:21)
[2021-12-17] MEDS: SERTRALINE HCL 50 MG TABLET 150 MG PO (09:21)
[2021-12-17] MEDS: ENOXAPARIN 40 MG/0.4 ML SYRINGE SUB-Q (09:22)
[2021-12-17] MEDS: buPROPion HCL SR (12HR) 100 MG TABCR 200 MG PO (09:22)
[2021-12-17] MEDS: hydrOXYzine pamoate 25 MG CAPSULE 100 MG PO (09:22)
--- NOTE | 2021-12-17 12:20 | PM.PNGS ---
Progress Note: A&P Assessment and Plan (1) Iliopsoas abscess on right: Code(s): K68.12 - Psoas muscle abscess Status: Acute Assessment and Plan: s/p perc drain x 2, exam benign and feeling much improved, ok to dc home c drains and Bactrim, f/u c Dr. Preston in 1-2 wks and likely will need to reassess c repeat CT prior to drain removal Subjective Subjective Date/Time Seen: 12/17/21 12:20 feels good, wants to go home Review of Systems Review of Systems: All systems reviewed & are unremarkable except as noted in HPI and below Exam Const: General: cooperative, comfortable and no acute distress Resp: Auscultation: clear to auscultation bilaterally Cardio: Rate: regular rate Rhythm: regular rhythm GI: Inspection: normal to inspection and non-distended GI Palp: Yes abdominal tenderness, Yes Soft to palpation, Yes Tenderness to palpation present (GI), No Guarding due to palpation present (GI) and No Rigid due to palpation Other: Drains x 2 c mod purulent drainage Objective Data Vital Signs Vital Signs: Vital Signs - 24 hr 12/16/21 14:09 12/16/21 22:00 12/16/21 20:00 Temperature 36.2 C L 36.1 C L Pulse Rate 56 L 54 L 54 L Respiratory Rate 16 16 16 Blood Pressure 100/57 L 108/47 L Pulse Oximetry 98 96 96 Oxygen Delivery Room Air 12/17/21 05:42 12/17/21 08:00 Temperature 36.2 C L Pulse Rate 63 Respiratory Rate 14 Blood Pressure 116/61 Pulse Oximetry 93 Oxygen Delivery Room Air Intake/Output Intake/Output: Intake & Output 12/14/21 12/15/21 12/16/21 12/17/21 23:59 23:59 23:59 23:59 Intake Total 4187 3555 3090 1340 Output Total 1100 3000 810 1000 Balance 3087 555 2280 340 Meds/Results Medications: Active Medications Generic Name Dose Route Start Last Admin Trade Name Freq PRN Reason Stop Dose Admin Bupropion HCl 200 mg 12/13/21 09:00 12/17/21 09:22 Bupropion Hcl Sr (12hr) 100 Mg Tabcr PO 200 mg DAILY DARRYN Administration Clonidine HCl 0.1 mg 12/13/21 21:00 12/16/21 21:18 Clonidine Hcl 0.1 Mg Tablet PO 0.1 mg HS DARRYN Administration Enoxaparin Sodium 40 mg 12/13/21 09:00 12/17/21 09:22 Enoxaparin 40 Mg/0.4 Ml Syringe SUB-Q 40 mg DAILY DARRYN Administration Hydroxyzine Pamoate 50 mg 12/13/21 21:00 12/16/21 21:09 Hydroxyzine Pamoate 25 Mg Capsule PO 01/12/22 20:59 50 mg HS DARRYN Administration Hydroxyzine Pamoate 100 mg 12/13/21 09:00 12/17/21 09:22 Hydroxyzine Pamoate 25 Mg Capsule PO 01/12/22 08:59 100 mg DAILY DARRYN Administration Piperacillin/Tazobactam/Dextrose 3.375 gm in 50 mls @ 100 mls/hr 12/13/21 00:30 12/17/21 12:01 Zosyn 3.375 Gm/D5w 50ml Pm IVPB Not Given Q6HR DARRYN Sodium Chloride 1,000 mls @ 100 mls/hr 12/12/21 21:40 12/17/21 11:51 Normal Saline Iv IV CONT Not Given .Q10H DARRYN Vancomycin HCl 1,250 mg in 250 mls @ 200 mls/hr 12/16/21 06:00 12/17/21 06:55 Vancomycin 1,250 Mg/D5w 250 Ml IVPB Infused Q12H DARRYN Infusion Lisinopril 10 mg 12/13/21 09:00 12/17/21 09:21 Lisinopril 10 Mg Tablet PO 10 mg DAILY DARRYN Administration Olanzapine 7.5 mg 12/13/21 21:00 12/16/21 21:09 Olanzapine 2.5 Mg Tablet PO 01/12/22 20:59 7.5 mg HS DARRYN Administration Ondansetron HCl 4 mg 12/12/21 18:21 Ondansetron Inj 4 Mg/2 Ml Vial IV PUSH Q4H PRN Nausea Oxycodone/Acetaminophen 1 tab 12/16/21 17:44 12/17/21 10:31 Oxycodone/Acetaminophen (*Crx) 10-325 Mg Tablet PO 1 tab Q4H PRN Administration Pain Rated 7-10 Quetiapine Fumarate 400 mg 12/13/21 21:00 12/16/21 21:09 Quetiapine Fumarate Xr 200 Mg Tab.Er.24h PO 400 mg HS DARRYN Administration Sertraline HCl 150 mg 12/13/21 09:00 12/17/21 09:21 Sertraline Hcl 50 Mg Tablet PO 150 mg DAILY DARRYN Administration Radiology Results: ITS Impressions Hip X-Ray 12/12/21 16:02 IMPRESSION: No acute osseous finding in the right hip. Abdomen/Pelvis CT 12/12/21 17:06 IMPRESSION:
[2021-12-17 14:06] VITALS: BP 122/69; PULSE 72; RESP 16; TEMP 36.4; O2SAT 93
--- NOTE | 2022-01-04 10:45 | PM.DS ---
DS: Admitting Diagnosis Discharge Date 12/17/21 Admitting Diagnosis retroperitoneal abscess DS: Discharge Diagnosis Discharge Diagnosis (1) Pelvic abscess: Status: Acute Assessment and Plan: Currently with drains Cultures pending Continue IV antibiotics. (2) Iliopsoas abscess on right: Code(s): K68.12 - Psoas muscle abscess Status: Acute Assessment and Plan: Plan is as detailed above. (3) Obstructive uropathy: Code(s): N13.9 - Obstructive and reflux uropathy, unspecified Status: Acute Assessment and Plan: Monitor kidney function (4) Renal insufficiency: Code(s): N28.9 - Disorder of kidney and ureter, unspecified Status: Acute Assessment and Plan: Likely secondary to above. (5) Dehydration: Code(s): E86.0 - Dehydration Status: Acute Assessment and Plan: Resolved (6) Electrolyte abnormality: Code(s): E87.8 - Other disorders of electrolyte and fluid balance, not elsewhere classified Status: Acute Assessment and Plan: Mild hyponatremia and hyperkalemia are likely due to dehydration and renal insufficiency. The should improve with IV fluid rehydration. Will continue to monitor these closely. DS: Summary Hospital Course Hospital Course: patient is a 61-year-old male with history of prostate cancer came in with abdominal pain and back pain. Found to have retroperitoneal abscess. Percutaneous drain was placed With significant drainage. Antibiotics were started and cultures were reviewed. Patient can be sent home on oral antibiotics he he will need follow-up with General surgery. Time Spent with Patient Time attestation: Total time spent providing and/or coordinating discharge services: Exam Narrative: General: Mildly ill, nontoxic appearing male in the semi-Choi position in bed. Weight: 88 kg. BMI: 27.1. HEENT: Wearing glasses. PERRL, EOMI. Sclera anicteric. Tacky mucous membranes. Neck: Supple. Respiratory: Lungs are clear to auscultation bilaterally. Cardiovascular: Regular rate and rhythm with S1-S2. Gastrointestinal: Abdomen is nondistended was hypoactive bowel sounds. He is tender to percussion in the left lower quadrant suprapubic region as well as in the right mid and upper quadrant. He is tender on the right flank and right lower back as well. He does have tender right inguinal lymphadenopathy as well. Pain is worse with internal external rotation of the right hip. Skin: Warm and dry. Small abrasion on the right knee with surrounding hyperpigmentation. Extremities: No cyanosis, clubbing, or edema. Radial and pedal pulses intact. Neurological: Alert. Cranial nerves 2-12 are grossly intact. No gross focal deficits to casual conversation. Psychiatric: Pleasant and cooperative with normal mood. Slightly anxious. Discharge Plan Discharge Attending physician on discharge: Dashawn Bradley Consulting providers: Sebastián Preston ; Cheryl Casillas ; Olga Lo ; Jessica Mustafa ; Marianna Watt ; Shadi Arteaga ; Jerson Goodman V. Discharging Clinician: Dashawn Bradley Patient Disposition: Home, Self-Care Activity: no preference Diet: as tolerated Patient Instructions: Antibiotic Form, Abscess (GEN) Stand Alone Forms: General Discharge Information Follow-up/Referrals: Sebastián Preston MD [Physician] - 1 Week Discharge Medications: New sulfamethoxazole-trimethoprim [Bactrim DS] 800-160 mg tablet 2 tablet PO Q12H 10 Days Qty: 40 0RF hydrocodone-acetaminophen 5-325 mg tablet 1 tablet PO TID PRN (Reason: pain) 5 Days Qty: 15 0RF Continued clonidine HCl 0.1 mg tablet 10 mg PO HS cetirizine 10 mg tablet 10 mg PO HS meloxicam 15 mg tablet 15 mg PO HS sertraline 100 mg tablet 100 mg PO DAILY olanzapine 7.5 mg tablet 7.5 mg PO HS sertraline 50 mg tablet 50 mg PO DAILY bupro
== END 2021-12-17 14:45 | disposition home or self-care (01) | DRG 248 ==
LOC: ANHED 18:58 → ANH3MEDSUR 19:32
PROVIDERS: Nurse Practitioner Family; Physician Assistant; Admitting Provider Internal Medicine; Emergency Provider Emergency Medicine; PCP Physician Assistant; Visit Provider Chiropractor
DX: K68.12 Psoas muscle abscess (principal); E87.1 Hypo-osmolality and hyponatremia; K68.19 Other retroperitoneal abscess; E86.0 Dehydration; N13.9 Obstructive and reflux uropathy, unspecified; E87.5 Hyperkalemia; N28.9 Disorder of kidney and ureter, unspecified; I10 Essential (primary) hypertension; K21.9 Gastro-esophageal reflux disease without esophagitis; Z85.46 Personal history of malignant neoplasm of prostate
CPT/HCPCS: 36415; 49406; 73502; 74177; 80048; 80053; 80202; 81001; 83605; 83735; 85025; 85027; 85610; 85730; 87040; 87070; 87075; 87086; 87147; 87181; 87186; 87205; 93970; 96361; 96374; 99285; A9270; C1729; C1769; J0131; J1170; J1650; J1885; J2543; J3370; J7030; Q9967

== ENCOUNTER 2022-01-10 11:10 | Outpatient (CLI) | payer BC, SELFPAY ==
--- NOTE | ~2022-01-10 | CT_ITS ---
EXAMINATION: CT abdomen pelvis w con INDICATION: Right lower quadrant pain with history of right lower quadrant iliopsoas abscess TECHNIQUE: Computed tomographic images of the abdomen and pelvis were obtained after the administrati on of 100 cc of Omnipaque 350 intravenous contrast. The dose-length product (DLP) was 550.86 mGy-cm. Automated exposure control and iterative reconstruction technique were employed. COMPARISON: 12/12/2021 FINDINGS: Minimal dependent atelectasis is present in the lung bases. The heart size is normal. The l iver, pancreas, gallbladder, and adrenal glands are normal. Punctate calcifications in an otherwise n ormal spleen likely represent healed granulomatous disease. The left kidney is unremarkable. Nonobstr ucting stones of the right kidney measure up to 3 mm. There is a 2.2 x 1.5 cm right pelvic abscess si tuated near the bifurcation of the right common iliac artery. A large volume of colonic stool is pres ent. There is calcified atherosclerosis of the aorta and many of the other arteries. No pathologicall y enlarged abdominal or pelvic lymph nodes are identified. There are no dilated loops of bowel. There is mild lumbar spondylosis. A fat-containing umbilical hernia is noted. IMPRESSION: 1. 2.2 x 1.5 cm right pelvic abscess situated near the bifurcation of the right common iliac artery. Reviewed, dictated and finalized at location A.
== END 2022-01-10 11:11 | disposition home or self-care (01) ==
PROVIDERS: PCP Physician Assistant; Visit Provider Surgery
DX: R10.31 Right lower quadrant pain (principal); Z87.898 Personal history of other specified conditions
CPT/HCPCS: 74177; Q9967

== ENCOUNTER 2024-07-09 13:21 | Outpatient (CLI) | payer MEDICARE, MEDICAID, SELFPAY ==
--- NOTE | ~2024-07-09 | MR_ITS ---
EXAMINATION: MR abdomen wo/w con DATE: 07/09/2024 14:22 INDICATION: Right renal neoplasm TECHNIQUE: Magnetic resonance imaging (MRI) of the abdomen was performed without and with 18 mL Multi lamonte intravenous contrast. Sequences included coronal T2-weighted SS-FSE, coronal and axial FS 2D-F IESTA, axial STIR FSE, axial T2-weighted SS-FSE, axial T2-weighted FS SS-FSE, axial diffusion-weighte d SE, axial dual-echo T1-weighted FSPGR, and axial and coronal T1-weighted LAVA. Postcontrast axial T 1-weighted LAVA images were obtained in a time course. Postcontrast coronal T1-weighted LAVA images w ere obtained. COMPARISON: CT dated 01/10/2022 FINDINGS: Mild cardiomegaly. No pericardial or pleural effusion. Liver, gallbladder spleen, pancreas and bilate ral adrenal glands are normal. Bilateral kidneys are normal with no evident renal lesion suspicious f or malignancy. Visualized portions of bowels are unremarkable with no obstruction. No pathologically enlarged abdominal lymphadenopathy.. Small fat-containing umbilical hernia. Mild lumbar levocurvature with moderate spondylosis.. IMPRESSION: 1. Unremarkable abdominal MRI with no renal lesion suspicious for neoplasm identified. Recommend sumanth elation with any prior outside imaging which may have raised concern. 2. Cardiomegaly. Reviewed, dictated and finalized at location B. IMPRESSION: 1. Unremarkable abdominal MRI with no renal lesion suspicious for neoplasm iden tified. Recommend correlation with any prior outside imaging which may have lowe sed concern. 2. Cardiomegaly.
--- OUTSIDE RECORDS SUMMARY | 2024-07-09 13:35 | XMS_ITS | Clinical Summary ---
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 Gender Identity Not on file Sexual Orientation Not on file Plan of Treatment Health Maintenance Due Date Last Done Comments Hepatitis C Virus (HCV) Screening 1960 TdaP Immunization 1960 Colonoscopy 12/07/2007 Colorectal Cancer Screening 12/07/2007 Cologuard 2012 Immunochemical Fecal Occult Blood 2012 Pneumococcal Immunization (5 0+ years) (1 of 1 - PCV) 2012 Zoster Immunization (1 of 2) 2012 PSA Discussion 2017 Influenza Immunization (#1) 2023 SARS-COV-2 Immunization (1 - 2023- season) 2023 Respiratory Syncytial Virus (RSV) Immunization (Adult) (1 - 1-dose 75+ series) 2037 Hepatitis B Immunization Aged Out No longer eligible based on patient's age to complete this topic Meningococcal Immunization (ACWY) Aged Out No longer eligible based on patient's age to complete this topic Pneumococcal Immunization Combined Aged Out No longer eligible based on patient's age to complete this topic Rotavirus Immunization Aged Out No lo nger eligible based on patient's age to complete this topic Insurance [place] Care Teams Senior Program Analyst Relationship Specialty Start Date End Date Suzanne Simmons PAC [facility] [place] [place] [address] PCP - General Physician Postdoctoral Scientist 03/23/24
--- OUTSIDE RECORDS SUMMARY | 2024-07-09 13:35 | XMS_ITS | Patient Health Record ---
Author Organization [facility] Address [address] [place] [address] Care Team Providers Care Database Operator Name Role Phone Asia Fernandez Primary Care Provider [phone] [phone] Allergies Allergen (clinical drug ingredient) Drug/Non Drug Allergy documented on EMR Reaction Allergy Type Onset Date Status morphine Morphine itching, welts Drug Allergy Ac tive Reason For Referral No Information Medications Medication SIG (Take, Route, Frequency, Duration) Notes Start Date End Date Status Zoloft 100 MG 2 tablet Orally Once a day for 30 days Active OLANZapine 10 MG 0.5 tablet morning and noon Orally Twice a day for 30 days Active SEROquel XR 200 MG 1 tablet in the evening Orally Once a day for 14 days tapering seroquel XR over 4 weeks 08/19/2023 Active OLANZapine 7.5 MG 1 tablet at bedtime Orally Once a day for 30 days Active hydrOXYzine Pamoate 50 MG 1 capsule as needed Orally twice a day for 30 days As needed for anxious distress Active Benztropine Mesylate 1 MG 1 tablet at bedtime Orally Once a day for 30 days 05/28/2023 Active Wellbutrin SR 150 MG 2 tablets Orally Once a day for 30 days Active hydrOXYzine Pamoate 100 MG 1 capsule at bedtime as needed Orally Once a day for 30 days As needed to sleep Active Social History Tobacco Use: Social History Observation Description Date Details (start date - stop date) Never Smoker NA - NA Sex Assigned At : Social History Observation Description Sex Assigned At Male Dont use, Tobacco Use/Smoking Question Answer Notes Are you a nonsmoker PRAPARE Question Answer Notes Date Completed/Updated: 08/04/2023 What is your current housing situation? I have h ousing Are you worried about losing your housing? No What is the highest level of school that you have finished? High school diploma or GED What is your current work situation? Oth erwise unemployed but not seeking work (ex. 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 Check all that apply I do not have problems meeting my needs Has lack of transportation k ept you from medical appointments, meetings, work or from getting things needed for daily living? No How often do you see or talk to people that you care about and feel close to? (For example: talking to friends on the phone, visiting friends or family, going to episcopal or club meetings) More than 5 times a week How stressed are you? Stress is when someone feels tense, nervous, anxious, or can\t sleep at night because their mind is troubled A little bit In the past year have you sp ent more than 2 nights in a row in a detention, longterm, fpc center, or juvenile correctional facility? No Do you feel physically and e motionally safe where you currently live? Yes In the past year, have you b een afraid of your partner or ex-partner? No Are you a refugee? No What country are you from? [place] PRAPARE Score: 5 Tobacco Control (Standard) Question Answer Notes Tobacco use: Nonsmoker Section Notes: rare beer, sober from meth f or 1.5 years, took a hit last weekend, denies cannabis, tobacco, Problems Problem Type SNOMED Code ICD Code Onset Dates Problem Status W/U Status Risk Notes Problem Schizoaffective disorder (10731385) Schizoaffective disorder (F25.9) Active confirmed Problem Posttraumatic stress disorder (06097435) Post traumatic stress disorder (PTSD) (F43.10) Active confirmed Problem Stimulant dependence (289753193) Amphetamine-type substance use disorder, 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 Vital Signs Heart Rate 71 /min 08/04/2023 Respiratory Rate 18 /min 08/04/2023 Blood pressure diastolic 66 mm Hg 08/04/2023 Oximetry 90 % 08/04/2023 Height 71 in 08/04/2023 Blood pressure systolic 138 mm Hg 08/04/2023 Weight 199 lbs 08/04/2023 BMI 27.75 kg/m2 08/04/2023 Encounters Encounter Location Date Provider Diagnosis [facility] [address] [address] 08/04/2023 Asia Fernandez Amphetamine-type substance use disorder, 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 ; Schizoaffective disorder F25.9 ; Post traumatic stress disorder (PTSD) F43.10 ; Medication monitoring encounter Z51.81 and Nutritional counseling Z71.3 [facility] [address] [place] [address] 08/04/2023 [address] [address] 07/23/2023 Asia Fernandez Post traumatic stres s disorder (PTSD) F43.10 Assessments Encounter Date Diagnosis (ICD Code) Assessment Notes Treatment Notes Treatment Clinical Notes Section Notes 08/04/2023 Schizoaffective disorder (ICD-10 - F25.9) 08/04/2023 Amphetamine-type substance use disorder, severe (ICD-10 - F15.20) 07/23/2023 Post traumatic stress disorder (PTSD) (ICD-10 - F43.10) 08/04/2023 Post traumatic stress disorder (PTSD) (ICD-10 - F43.10) 08/04/2023 Medication monitoring encounter (ICD-10 - Z51.81) 08/04/2023 Nutritional counseling (ICD-10 - Z71.3) 08/04/2023 Other Plan to simplify medicaitons. Suspect high cholinergic and serontinergic burden without symptom control. decreased Seroquel XR 400 mg QHS (down from 600mg) x 14 days, then SEroquel XR 200 mg X 14 days then stop. Olanzapine 5 mg BID Olanzapine 7.5 mg QHS Zoloft 200mg QD stop Mirtazepine Hydroxyzine 50 mg BID PRN hydroyxzine 100mg QD benztropine 1 mg QHS (raised from 0.5 mg) 08/04/2023 Other Provided case management services to address social determinants of health needs and reduce barriers to health care services. Plan Of Treatment No Information Insurance Providers Payer Name Payer Address Payer Phone Subscriber Number Group Number Insured Name Patient Relationship to Insured Coverage Start Date Coverage End Date [facility] [address] [place] [phone] [id number] Martin Tito Self - patient is the insured 2 4 MEDICAID [address] [place] [address] [id number] Martin Tito Self - patient is the insured 4 4 [facility]health [address] [place] [phone] [id number] 6 Salazar Tito Self - patient is the insured 2 4 Medical (General) History Medical History History ICD Code kidney lesion detected 07/05 awaiting wor k up. hypertension chronic pain Surgical History Surgery Date(Month/Year) prostate cancer 2017 cheek bone repair 2011 hernia repair 2001 Hospitalization History Reason Date(Month/Year) low oxygen levels 2022 see surgeries
--- OUTSIDE RECORDS SUMMARY | 2024-07-09 13:35 | XMS_ITS | Encounter Summary ---
Author Organization [facility] Care Team Providers Care Environmental Control Administrator Name Role Phone Chelo Ugalde MD Primary Care Provider [phone] Suzanne Simmons Primary Care Provider + Nikita Hernandez MD Unavailable Encounter Details Date Type Department Care Team (Latest Contact Info) Description 11/29/2016 Orders Only [facility] ProviderNay MD [address] [place] [id number] Social History Tobacco Use Types Packs/Day Years Used Date Smoking Tobacco: Never Assessed Sex and Gender Information Value Date Recorded Sex Assigned at Not on file 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 Historical Provider Final Res ult documented in this encounter Visit Diagnoses Not on filedocumented in this encounter Additional Health Concerns Infection Onset Date Last Indicated Resolved Time COVID: Suspected 06/11/2023 06/11/2023 06/11/2023 8:57 PM ENROLLMENT COORDINATOR documented as of this encounter Care Teams Environmental Control Administrator Relationship Specialty Start Date End Date Chelo Ugalde MD PCP - General Family Medicine 08/06/18 06/10/23 Suzanne Simmons PA PCP - General Physician Head Sulfide Operator 06/11/23 Nikita Hernandez MD [address] [place] [address] Consulting Physician Urology 06/17/23 documented as of this encounter
--- OUTSIDE RECORDS SUMMARY | 2024-07-09 13:35 | XMS_ITS | Clinical Summary ---
Author Organization [facility] Address [address] [place] [address] Phone Care Team Providers Care Film Casting Operator Name Role Phone Unavailable Primary Care Provider Unavailabl e Allergies Active Allergy Reactions Criticality Noted Date Comments Morphine 07/29/2023 Medications Medication Sig Dispensed Refills Start Date End Date Status fluticasone-salmeterol (ADVAIR HFA) 115-21 MCG/ACT inhaler Inhale 1 puff in the morning and 1 puff before bedtime. Active buPROPion SR (WELLBUTRIN SR) 150 MG 12 hr tablet Take 150 mg by mouth in the morning. 2 tabs daily (300mg). Active famotidine (PEPCID) 20 MG tablet Take 20 mg by mouth in the morning and 20 mg in the evening. Active hydrOXYzine (ATARAX) 50 MG tablet Take 50 mg by mouth 1 (one) time each day 2 tabs daily Active lisinopril (PRINIVIL) 10 MG tablet Take 10 mg by mouth 1 (one) time each day Active meloxicam (MOBIC) 15 MG tablet Take 15 mg by mouth 1 (one) time each day Active mirtazapine (REMERON) 15 MG tablet Take 15 mg by mouth every night 2 tabs at bedtime Active QUEtiapine XR (SEROquel XR) 300 MG 24 hr tablet Take 300 mg by mouth every night 2 tabs at bedtime Active sertraline (ZOLOFT) 100 MG tablet Take 100 mg by mouth 1 (one) time each day 2 tabs daily Active fluticasone HFA (FLOVENT HFA) 220 MCG/ACT inhaler Inhale 2 puffs in the morning and 2 puffs before bedtime. Active OLANZapine (ZyPREXA) 5 MG tablet Take 5 mg by mouth in the morning and 5 mg in the evening. Active benztropine (COGENTIN) 0.5 MG tablet Take 0.5 mg by mouth 1 (one) time each day Active Active Problems Problem Noted Date Diagnosed Date Chronic kidney disease, stage 2 (mild) Anemia in chronic kidney disease 09/25/2023 Hypoalbuminemia 09/25/2023 Proteinuria 09/25/2023 Vitamin D deficiency 09/25/2023 Urinary tract infectious disease 07/29/2023 Essential hypertension 07/29/2023 Resolved Problems Problem Noted Date Diagnosed Date Resolved Date Acute nontraumatic kidney injury 07/29/2023 09/25/2023 Hyponatremia 07/29/2023 09/25/2023 Pyelonephritis 07/29/2023 09/25/2023 Family History Medical History Relation Comments Heart attack Brother Relation Status Comments Brother Social History Tobacco Use Types Packs/Day Years Used Date Smoking Tobacco: Never Smokeless Tobacco: Never Alcohol Use Standard Drinks/Week Comments Not Currently 0 (1 standard drink = 0.6 oz pure alcohol) alcohol and marijuana (not recently) Sex and Gender Information Value Date Recorded Sex Assigned at Not on file Gender Identity Not on file Sexual Orientation Not on file Last Filed Vital Signs Vital Sign Reading Time Taken Comments Blood Pressure 134/83 07/29/2023 3:32 PM CDT Pulse 88 07/29/2023 3:32 PM CDT Temperature - - Respiratory Rate - - Oxygen Saturation - - Inhaled Oxygen Concentration - - Weight 89.4 kg (197 lb) 07/29/2023 3:32 PM CDT Height 180.3 cm (5' 11 ) 07/29/2023 3:32 PM CDT Body Mass Index 27.48 07/29/2023 3:32 PM CDT Plan of Treatment Health Maintenance Due Date Last Done Comments Pneumococcal PPSV23 Highest Risk Adult (1 of 3 - PCV13 ) 1979 Influenza Vaccine (#1) 2023
--- OUTSIDE RECORDS SUMMARY | 2024-07-09 13:35 | XMS_ITS | Referral Summary ---
Author Organization [facility] Address [address] [place] [address] Care Team Providers Care Director Of Strategic Marketing Name Role Phone Suzanne Simmons Primary Care Provider + Nikita Hernandez MD Unavailable Encounters Date Type Department Care Team Description 04/30/2024 Orders Only [facility] Neurosurgery [address] [place] [address] Andre Leblanc NP Cervical myelopathy (HCC) (Primary Dx) from Last 3 Months Allergies Active Allergy Reactions Criticality Noted Date Comments Morphine Hives Medium 08/30/2022 Medications famotidine (PEPCID) 20 mg tablet Take 1 tablet (20 mg total) by mouth 2 (two) times a day 3 Active buPROPion SR (WELLBUTRIN SR) 150 mg 12 hr tablet Take 2 tablets (300 mg total) by mouth daily 3 Active Advair HFA 115-21 mcg/actuation inhaler Inhale 2 puffs 2 (two) times a day 3 Active hydrOXYzine (VISTARIL) 50 mg capsule Take 1 capsule (50 mg total) by mouth 2 (two) times a day as needed 3 Active lisinopriL (PRINIVIL,ZESTR IL) 10 mg tablet Take 1 tablet (10 mg total) by mouth daily 3 Active mirtazapine (REMERON) 15 mg tablet Take 2 tablets (30 mg total) by mouth nightly at bedtime 3 Active OLANZapine (ZyPREXA) 7.5 mg tablet Take 1 tablet (7.5 mg total) by mouth nightly at bedtime 3 Active QUEtiapine XR (SEROquel XR) 300 mg 24 hr tabletIndicatio ns:Depression associated with Bipolar Disorder Take 600 mg by mouth nightly take 2 tablets at night 3 Active sertraline (ZOLOFT) 100 mg tablet Take 2 tablets (200 mg total) by mouth daily 3 Active FLUTICASONE FUROATE INHALIndication s:allergy Administer 50 mcg into affected nostril(s) daily. Indications: allergy Active hydrOXYzine (VISTARIL) 100 mg capsuleIndicati ons:anxiety Take 100 mg by mouth daily. Indications: anxious Active benztropine (COGENTIN) 0.5 mg tabletIndicatio ns:tremors Take 0.5 mg by mouth daily. Indications: tremors Active OLANZapine (ZyPREXA) 10 mg tabletIndicatio ns:Depression Treatment Adjunct Take 5 mg by mouth 2 (two) times a day. take 1/2 tablet by mouth twice a day in morning and at noon Indications: additional treatment for major depressive disorder Active albuterol HFA (PROVENTIL HFA,VENTOLIN HFA,PROAIR HFA) 90 mcg/actuation inhalerIndicati ons:Shortness of breath Inhale 2 puffs every 6 (six) hours as needed for shortness of breath. Indications: Shortness of breath Active naproxen (NAPROSYN) 500 mg tablet Take 1 tablet (500 mg total) by mouth 2 (two) times a day with meals 30 tablet 4 Active cyclobenzaprine (FLEXERIL) 10 mg tablet Take 1 tablet (10 mg total) by mouth 2 (two) times a day as needed for muscle spasms 20 tablet 4 Active Active Problems Problem Noted Date Diagnosed Date Abdominal pain 06/12/2023 Nausea & vomiting 06/12/2023 Hyponatremia 06/12/2023 Renal lesion 06/12/2023 Sepsis 06/12/2023 Elevated LFTs 06/12/2023 Depression 06/12/2023 Urinary tract infection without hematuria 2023 BRYAN (acute kidney injury) 06/12/2023 Hypertension 07/22/2016 Social History Tobacco Use Types Packs/Day Years Used Date Smoking Tobacco: Never Passive Smoke Exposure: Never Smokeless Tobacco: Never [facility] Utilities Answer Date Recorded In the past 12 months has th e electric, gas, oil, or water company threatened to shut off services in your home? No 06/12/2023 Social Connection and Isolation Panel [NHANES] A nswer Date Recorded In a typical week, how many times do you talk on the phone with family, friends, or neighbors? Three times a week 06/12/2023 How often do you get togethe r with friends or relatives? Three times a week 06/12/2023 How often do you attend chur ch or restoration services? Never 06/12/2023 Do you belong to any clubs o r organizations such as congregational groups, unions, fraternal or athletic groups, or school groups? No 06/12/2023 How often do you attend meet ings of the clubs or organizations you belong to? Never 06/12/2023 Are you , , di vorced, , never , or living with a partner? 06/12/2023 AUDIT-C Answer Date Recorded Q1: How often do you have a drink containing alcohol? Never 06/12/2023 Q2: How many drinks containi ng alcohol do you have on a typical day when you are drinking? Patient does not drink Q3: How often do you have si x or more drinks on one occasion? Never 06/12/2023 Overall Financial Resource Strain (CARDIA) Answe r Date Recorded How hard is it for you to pa y for the very basics like food, housing, medical care, and heating? Not very hard 06/12/2023 Hunger Vital Sign Answer Date Recorded Within the past 12 months, y ou worried that your food would run out before you got the money to buy more. Never true 06/12/19 24 Within the past 12 months, t he food you bought just didn't last and you didn't have money to get more. Never true 06/12/2023 PRAPARE - Transportation Answer Date Re corded In the past 12 months, has l ack of transportation kept you from medical appointments or from getting medications? No 05/16 In the past 12 months, has l ack of transportation kept you from meetings, work, or from getting things needed for daily living? No 06/12/2023 Housing Stability Vital Sign Answer Sahil e Recorded In the last 12 months, was t here a time when you were not able to pay the mortgage or rent on time? No 06/12/2023 In the last 12 months, how many places have you lived? 1 06/12/2023 In the last 12 months, was t here a time when you did not have a steady place to sleep or slept in a half-way (including now)? No 06/12/2023 Personal Safety Answer Date Recorded Have you ever been in or are you currently in a harmful physical or emotional relationship or is someone making you feel afraid or unsafe? Denies 12/10/2023 Sex and Gender Information Value Date Recorded Sex Assigned at Not on file Legal Sex Male 6:39 PM ESCAPE WHEEL [employer] C[employer] Gender Identity Not on file Sexual Orientation Not on file Last Filed Vital Signs Vital Sign Reading Time Taken Comments Blood Pressure 120/64 12/10/2023 8:55 AM CDT Pulse 74 12/10/2023 8:55 AM CDT Temperature 36.4 C (97.6 F) 12/10/2023 7:16 AM CDT Respiratory Rate 16 12/10/2023 8:55 AM CDT Oxygen Saturation 99% 12/10/2023 8:55 AM CDT Inhaled Oxygen Concentration - - Weight 83.5 kg (184 lb 1.4 oz) 12/10/2023 7:16 A M CDT Height 180.3 cm (5' 11 ) 12/10/2023 7:16 AM CDT Body Mass Index 25.67 12/10/2023 7:16 AM CDT Plan of Treatment Not on file Procedures Procedure Name Priority Date/Time Associated Diagnosis Comments PSA DIAGNOSTIC Routine 09/17/2023 11:15 AM CDT History of prostate cancer HEPATITIS PANEL, ACUTE STAT 06/11/2023 10:38 PM 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 Results from different manufacturers or methods may not be comparable. Serial testing should be performed using the same method. Current interpretive data last revised 21. Testing performed by: [facility], [address] [place] [address]., [id number] Blood 09/17/2023 11:1 5 AM CDT 09/17/2023 1:44 PM CDT us Mark Barrera MD LAB BLOOD ORDERABLES Final Resul t [facility] [address] [facility] [place] [address] * Hepatitis panel, acute Blood (06/11/2023 10:38 PM ESCAPE WHEEL TOOTH CUTTER) Pathologist [facility] Hep A IgM Nonreactive Nonreactive [facility] Comment: Interpretive Data: If Hep A IgM Ab is reported as Equivocal, a new sample should be drawn in two weeks for testing. Current interpretive data was last revised on 19. Hep B core IgM Nonreactive [facility]reactive [facility] Comment: Interpretive Data If HepB Core IgM Ab is reported as Equivocal, a new sample should be drawn in two weeks for testing. Current interpretive data was last revised on 19. Hep C Ab Nonreactive Nonreactive [facility] Comment: Antibodies to HCV not detected. Does NOT exclude the possibility of recent exposure to HCV. Current interpretive data was last revised on 21 Interpretive Data Nonreactive: Antibodies to HCV not detected. Does NOT exclude the possibility of recent exposure to HCV. Equivocal: Equivocal for HCV antibodies. Supplemental molecular testing will be automatically performed to determine infection status in accordance with current CDC screening recommendations. Reactive: Positive for HCV antibodies. This may represent current or past HCV infection. Supplemental molecular testing will be automatically performed to determine current infection status in accordance with current CDC screening recommendations. Interpretive data was last revised on 2019. HepBsAg Nonreactive Nonreactive [facility] Blood 06/11/2023 10:3 8 PM [employer] WHEEL [employer] C[employer]TER 06/11/2023 11:18 PM ESCAPE WHEEL TOOTH C[employer]TER us Jerson Ramirez MD LAB MICROBIOLOGY - GENERAL OR DERABLES Final Result Performing Organization Address City/State/[facility] Co de Phone Number [facility] [address] [facility] [place] [address] from Last 3 Months or Most Recently Relevant to Health Maintenance Insurance MEDICARE Advance Directives For more information, please contact: [phone] Documents on File Type Date Recorded Patient Molecular Genetic Pathologist Expl anation ADVANCE DIRECTIVE 03/05/2017 12:00 AM [facility] ER OF PRACTICE SUPPORT SPECIALIST FINANCIAL/MEDICAL * Full Code (Latest Code Status on File) Date Activated Date Inactivated Comments 06/12/2023 2:10 AM 06/17/2023 3:25 PM Care Teams Director Of Strategic Marketing Relationship Specialty Start Date End Date Suzanne Simmons PA PCP - General Physician [employer] 06/11/23 Nikita Hernandez MD [address] [place] [address] Consulting Physician Urology 06/17/23
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
--- OUTSIDE RECORDS SUMMARY | 2024-07-09 13:35 | XMS_ITS ---
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 Stress is when someone feels tense, nervous, anxious, or can\t sleep at night because their mind is troubled A little bit In the past year have you sp ent more than 2 nights in a row in a usp, chcf, mcfp center, or juvenile correctional facility? No Do you feel physically and e motionally safe where you currently live? Yes In the past year, have you b een afraid of your partner or ex-partner? No Are you a refugee? No What country are you from? [place] PRAPARE Score: 5 Tobacco Control (Standard) Question Answer Notes Tobacco use: Nonsmoker Encounters Encounter Location Date Provider Diagnosis [place] [address] [address] 08/04/2023 Es Atwood Assessments Encounter Date Diagnosis (ICD Code) Assessment Notes Treatment Notes Treatment Clinical Notes Section Notes 08/04/2023 Other Provided case management services to address social determinants of health needs and reduce barriers to health care services. Plan Of Treatment Treatment Notes Assessment Notes Other Provided case manage ment services to address social determinants of health needs and reduce barriers to health care services. Progress Notes * Tito SALAZARDOB:1960 ([age] yo M)Acc No.[id number]:08/04/2023 Patient: Kenny BERNARDith Provider: Jaxson Atwood LCSW :1960 A ge:62 Y S ex:Male Date:08/04/2023 Address:[address] [place], [place] [id number] Pcp:Kristyn Dong Subjective: * Chief Complaints: * HPI: C ase Management -Current Care Team: [place] of Care:. Current Care Team W ho is your primary care provider? N on-[facility] provider: [facility]: [facility] o you have a psychiatric provider? C [facility] Psychiatric Provider C Psychiatric Provider Name: A my Jim Levy o you see anyone else at [facility]? N o C onsent forms completed during appointment:?Consent to Treat A ssessment of Social Determinants of Health::: SDOH Issues Addressed: S ANGELICA Issues Addressed N one. SDOH assessment completed. * Social History: P rimary Social History: L iving Arrangement L iving Arrangement: I ndependent Living I s this a supportive environment? Y es Alcohol Use A lcohol Use Frequency: N ever Illicit Substance Usage I llicit Substance Usage: N o Employment Status E mployment Status: U nemployed Tobacco Use T obacco Use: N on-smoker S ocial Determinants: Chris Levy ate Completed/Updated: 0 08/04/2023 W hat is your current housing situation? I have housing A re you worried about losing your housing??No W hat is the highest level of school that you have finished? H igh school diploma or GED W hat is your current work situation? 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 Check all that apply I do not have problems meeting my needs H as lack of transportation kept you from medical appointments, meetings, work or from getting things needed for daily living? N o H ow often do you see or talk to people that you care about and feel close to? (For example: talking to friends on the phone, visiting friends or family, going to mosque or club meetings) M ore than 5 times a week H ow stressed are you? Stress is when someone feels tense, nervous, anxious, or can\t sleep at night because their mind is troubled A little bit I n the past year have you spent more than 2 nights in a row in a usp, chcf, mcfp center, or juvenile correctional facility? N o D o you feel physically and emotionally safe where you currently live? Y es I n the past year, have you been afraid of your partner or ex-partner? N o A re you a refugee? N o W hat country are you from? [place] P DEVORAH Score: 5 T obacco Use: D ont use, Tobacco Use/Smoking A re you a n onsmoker Tobacco Control (Standard) T obacco use: N onsmoker P ERSONAL HISTORY: H ISTORY OF PHYSICAL, VERBAL, or SEXUAL ABUSE: location- [place] lives [place]? WifeSiblings? Children? 5 brothers [...] or write. I had a scholarship for [employer] and did not take itOccupation/Job history- I worked for [employer]. 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 M iscellaneous: M ethod of learning P referred method of learning: H earing Objective: Assessment: Plan: * Treatment: * Procedure Codes: T 1016 Case [id number] [facility] Service * Care Plan Details* * Sign off status: Completed true * Provider: Jaxson Atwood LCSW Date: 0 08/04/2023 Generated for Kieran smith/Ilia/William on: 0 07/09/2024 01:35 PM CDT History and Physical Notes * HPI (History of Present Illness) Category Sub-Category Detail Notes Category Not es Case Management -Current Care Team Current Care Team Who is your primary care provider?: Non-[facility] Likewise Software provider: Provider name: Consumer stated Dr. Suzanne Simmons [facility] Do you have a psychiatric pr ovider?: [facility] Psychiatric Provider [facility] Psychiatric Provider Name:: Asia Fernandez Do you see anyone else at [facility]?: No Consent forms completed during appointme nt:: Consent to Treat Assessment of Social Determinants of Health:: SDOH Issues Addressed: SDOH Issues Addressed: None. SDOH assessment completed.
--- OUTSIDE RECORDS SUMMARY | 2024-07-09 13:35 | XMS_ITS | Clinical Summary ---
Author Organization [facility] Address [address] [place] [address] Care Team Providers Care Obstetrics Teacher Name Role Phone Suzanne Simmons Primary Care Provider + Nikita Hernandez MD Unavailable Allergies Active Allergy Reactions Criticality Noted Date [...] BRYAN (acute kidney injury) 06/12/2023 Hypertension 07/22/2016 Encounters Date Type Department Care Team Description 04/30/2024 Orders Only [facility] Neurosurgery [address] [facility] [address] [place] [address] Andre Leblanc NP Cervical myelopathy (HCC) (Primary Dx) from Last 3 Months Surgical History Surgery Date Site/Laterality Comments PROSTATECTOMY Medical History Medical History Date Comments Hypertension Depression Personal history of prostate cancer 2020 Family History Medical History Relation Name Comments Heart attack Brother 1 Heart attack Brother 2 No Known Problems Father No Known Problems Mother Relation Name Status Comments Brother 1 Brother 2 Father Mother Social History Tobacco Use Types Packs/Day Years Used Date Smoking Tobacco: Never Passive Smoke Exposure: Never Smokeless Tobacco: Never [facility] Utilities Answer Date Recorded In the past 12 months has th e [employer], gas, oil, or water [employer] threatened to shut off services in your [...] week 06/12/2023 How often do you attend [facility] or voodoo services? Never 06/12/2023 Do you belong to any clubs o r organizations such as rastafari groups, unions, fraternal or athletic groups, or [...] place to sleep or slept in a usp (including now)? No 06/12/2023 Personal Safety Answer Date Recorded Have you ever been in or are you currently in a harmful physical or emotional relationship or is someone making you feel afraid or unsafe? 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 Gender Identity Not on file Sexual Orientation Not on file Obstetrics History Last Filed Vital Signs Vital Sign Reading [...] 12/10/2023 7:16 AM CDT Plan of Treatment Health Maintenance Due Date Last Done Comments Colon Cancer Screening-Colonoscopy 1962 Depression Screening 1962 Hepatitis B Screening 1980 Regular Well Visit/Exam 18-64 1980 Zoster Vaccine (1 of 2) 2012 Covid-19 Vaccine ( season) 2023 08/17/2020, 08/12/2020, 07/27/2020, Additional history exists Influenza Vaccine (#1) 2023 Prostate Cancer Screening-PSA 09/16/2025 09/17/2023, 07/16/2016 DTaP/Tdap/Td Vaccine (2 - Td or Tdap) 09/02/2032 09/02/2022 Hepatitis C Screening Completed 06/11/2023 Pneumococcal vaccine <65 Aged Out No longer eligible based on patient's age to complete this topic Procedures Procedure Name Priority Date/Time Associated Diagnosis Comments PSA DIAGNOSTIC Routine 09/17/2023 11:15 AM CDT History of prostate cancer HEPATITIS PANEL, ACUTE STAT 06/11/2023 10:38 PM PRODUCTION SUPPLY EQUIPMENT TENDER from Last 3 Months or Most Recently [...] data last revised 21. Testing performed by: [facility], [address] [place] [address]., [address] Blood 09/17/2023 11:1 5 AM CDT 09/17/2023 1:44 PM CDT us Mark Barrera MD LAB BLOOD ORDERABLES Final Resul t MICHELLEAJZ [address] [facility] Department [place] [address] * Hepatitis panel, acute Blood (06/11/2023 10:38 PM PRODUCTION SUPPLY EQUIPMENT TENDER) Hep A IgM Nonreactive Nonreactive [facility] Comment: Interpretive Data: If Hep A IgM Ab is reported as Equivocal, a new sample should be drawn in two weeks for testing. Current interpretive data was last revised on 19. Hep B core IgM Nonreactive Nonreactive [facility] Comment: Interpretive Data If HepB Core IgM Ab is reported as Equivocal, a new sample should be drawn in two weeks for testing. Current interpretive data was last revised on 19. Hep C Ab Nonreactive Nonreactive [facility] Comment: Antibodies to HCV not detected. Does [...] revised on 2019. HepBsAg Nonreactive Nonreactive [facility] Blood 06/11/2023 10:3 8 PM PRODUCTION SUPPLY EQUIPMENT TENDER 06/11/2023 11:18 PM PRODUCTION SUPPLY EQUIPMENT TENDER Jerson Ramirez MD LAB MICROBIOLOGY - GENERAL OR DERABLES Final Result Performing Organization Address City/State/[facility] Co de Phone Number [facility] [address] [facility] Department [place] [address] from Last 3 Months or Most Recently Relevant to Health Maintenance [place] [address] [place] [address] MEDICARE ADVANTAGE [facility] MEDICARE [facility] Address: [address] [address] [place] [address] Advance Directives For more information, please contact: [phone] Documents on File Type Date Recorded 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
--- OUTSIDE RECORDS SUMMARY | 2024-07-09 13:36 | XMS_ITS ---
Author Organization [facility] Address [address] [place] [address] Care Team Providers Care Solar Mechanical Engineer Name Role Phone Asia Fernandez Primary Care Provider [phone] REASON FOR VISIT Laboratory f/u Social History Sex Assigned At : Social History Observation Description Sex Assigned At Male Encounters Encounter Location Date Provider Diagnosis [address] [address] 08/05/2023 Asia Fernandez Plan Of Treatment No Information Progress Notes * SALAZARTitoDOB:1960 ([age] yo M)Acc No.[id number]:08/05/2023 UNLOCKED PROGRESS NOTE Patient: Tito BERNARD Provider: JOEL Morillo :1960 A ge:62 Y S ex:Male Date:08/05/2023 Address:[address] [place] [address] Subjective: * Chief Complaints: * 1 . Laboratory f/u. * Medical History: Objective: * Vitals: Assessment: Plan: * Treatment: * * Electronic signature of Asia Fernandez , [id number] on 07/09/2024 at 01:35 PM CDT Sign off status: Pending * Provider: JOEL Morillo Date: 08/05/2023 Generated for Kieran smith/Ilia/eTransmitting on: 0 07/09/2024 01:35 PM CDT
--- OUTSIDE RECORDS SUMMARY | 2024-07-09 13:36 | XMS_ITS | Encounter Summary ---
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 us Historical Provider Final Res ult documented in this encounter Visit Diagnoses Not on filedocumented in this encounter Additional Health Concerns Infection Onset Date Last Indicated Resolved Time COVID: Suspected 06/11/2023 06/11/2023 06/11/2023 8:57 PM ROVING HAULER documented as of this encounter Care Teams Retail Cashier Relationship Specialty Start Date End Date Chelo Ugalde MD PCP - General Family Medicine 08/06/18 06/10/23 Suzanne Simmons PA PCP - General Physician Cath Laboratory Technician 06/11/23 Nikita Hernandez MD [address] [place] [address] Consulting Physician Urology 06/17/23 documented as of this encounter
--- OUTSIDE RECORDS SUMMARY | 2024-07-09 13:36 | XMS_ITS | Clinical Summary ---
Author Organization [facility] Address [address] [place] [address] Care Team Providers Care Forcer Maker Name Role Phone Suzanne Simmons PA-C Primary Care Provider Source Comments [facility],non-owned Affiliates and Associated Physician Practices is amultiple site organization consisting of ambulatory clinics and hospital sitesin [place], [place], [place] and [place]. This disclosure is being madepursuant to the Care Everywhere program and may not contain all information available regarding this patient. Last updated 18.[facility] [employer] Social History Tobacco Use Types Packs/Day Years Used Date Smoking Tobacco: Never Assessed Sex and Gender Information Value Date Recorded Sex Assigned at Not on file Gender Identity Not on file Sexual Orientation Not on file Plan of Treatment Upcoming Encounters Date Type Department Care Team (Late st Contact Info) Description 08/02/2024 9:45 AM CDT Office Visit [facility] - [facility] [address] [place] [phone] Artur Parker MD [address] [place] [address] [place] [address] Health Maintenance Due Date Last Done Comments COLOGUARD (AGES 45-75) - COL ON CA SCREENING 1962 COLON MONITORING 1962 COLONOSCOPY - COLON CA SCREENING 1962 CT COLONOGRAPHY - COLON CA SCREENING 1962 Colorectal Cancer Screening 1962 FIT - COLON CA SCREENING 1962 FLEX SIG - COLON CA SCREENING 1962 LIPID TESTING 1962 MEDICARE AWV 12 MONTHS 1962 HIV SCREENING 1977 HEPATITIS C SCREENING 12/01/1980 DTAP/TDAP/TD VACCINES (1 - Tdap) 1981 PNEUMOCOCCAL VACCINE 50+ (1 of 1 - PCV) 2012 ZOSTER VACCINE (1 of 2) 2012 COVID-19 VACCINE (3 - 2023-2 5 season) 2023 08/12/2020, 07/13/2020 INFLUENZA VACCINE (#1) 2023 DEPRESSION SCREENING 04/14/2024 Respiratory Syncytial Virus (RSV) Vaccine Pt: or over 60 yrs (1 - 1-dose 75+ series) 2037 HEPATITIS B VACCINE Aged Out No longe r eligible based on patient's age to complete this topic HIB VACCINE Aged Out No longer eligi ble based on patient's age to complete this topic HPV VACCINE Aged Out No longer eligi ble based on patient's age to complete this topic MENINGOCOCCAL (Group B) VACCINE SHARED DECISION-MAKING Aged Out No longer eligible based on patient's age to complete this topic MENINGOCOCCAL GROUPS A/C/Y/W VACCINE Aged Out No longer eligible b ased on patient's age to complete this topic Care Teams Forcer Maker Relationship Specialty Start Date End Date Suzanne Simmons PA-C [address] [place] [phone] PCP - General Physician Green Chainer 07/07/24
== END 2024-07-09 13:22 | disposition home or self-care (01) ==
PROVIDERS: PCP Physician Assistant; Visit Provider Urology
DX: D41.01 Neoplasm of uncertain behavior of right kidney (principal); I51.7 Cardiomegaly
CPT/HCPCS: 74183; A9577